=== PATIENT | female | born 1925 | race Caucasian/White ===

== ENCOUNTER 2016-03-04 14:26 | Inpatient (IN) | payer MEDICARE, MEDICAID ==
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
[2016-03-04 15:59] LABS: % EOSINOPHILS 3.8 % (0.0-5.0); % LYMPHOCYTES 20.7 % (20.0-50.0); % MONOCYTES 8.4 % (2.0-10.0); % NEUTROPHILS 67.1 % (40.0-80.0); HEMOGLOBIN 13.3 gm/dL (11.7-16.1); MEAN CELL VOLUME 92.8 fl (81-100); MEAN CORPUSCULAR HEMOGLOBIN 31.6 pg (27.0-31.0); MEAN PLATELET VOLUME 7.4 fl; NEUTROPHILE ABSOLUTE 5.9 Th/cmm (1.8-8.0); PLATELET COUNT 291 Th/cmm (150-400); RED CELL DISTRIBUTION WIDTH 13.1 % (11.5-20.0); WHITE BLOOD COUNT 8.7 Th/cmm (4.8-10.8)
[2016-03-04 16:14] LABS: ALB/GLOB RATIO 1.8 (1.0-1.8); ALKALINE PHOSPHATASE 81 U/L (34-104); ANION GAP 10.4 (7.0-16.0); BILIRUBIN,TOTAL 0.4 mg/dL (0.3-1.0); BUN - UREA NITROGEN 20 mg/dL (7-25); BUN/CREATININE RATIO 28.6; CALCIUM SERUM 9.6 mg/dL (8.6-10.3); CARBON DIOXIDE 22.7 mEq/L (21.0-31.0); CHLORIDE 111 mEq/L (98-107); CREATININE - SERUM 0.7 mg/dL (0.6-1.2); GLUCOSE 97 mg/dL (70-105); POTASSIUM SERUM 4.1 mEq/L (3.5-5.1); SGOT 22 U/L (13-39); SGPT/ALT 18 U/L (7-52); SODIUM SERUM 140 mEq/L (136-145)
[2016-03-04 19:40] VITALS: BP 145/71
[2016-03-04] MEDS ORDERED: Maalox 30 mL Cup PO PRN (19:52)
[2016-03-04] MEDS ORDERED: Magnesium Hydroxide (MOM) 30 mL UDC PO PRN (19:52)
[2016-03-04] MEDS ORDERED: Non-Formulary Item 1 EA (Melatonin [Melatonin] 9 MG) PO SCH (21:00)
[2016-03-04] MEDS: Dextromethorphan/Quinidine 20mg/10mg Cap PO SCH (21:02)
[2016-03-05] MEDS: Multivitamin w/ Minerals Tab PO SCH (08:34)
[2016-03-05] MEDS: Dextromethorphan/Quinidine 20mg/10mg Cap PO SCH ×2 (08:34→20:41)
[2016-03-05] MEDS ORDERED: Non-Formulary Item 1 EA (Cranberry [Cranberry] 425 MG) PO SCH (09:00)
[2016-03-05] MEDS: Diclofenac 75 mg Tab PO SCH ×2 (09:07→17:09)
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
--- NOTE | 2016-03-06 08:39 | Psychosocial Evaluation ---
JUSTIFICATION FOR HOSPITALIZATION: The patient was transferred from the nursing facility for agitation and aggression. CHIEF COMPLAINT: "I don't know why I am here." HISTORY OF PRESENT ILLNESS: An 89-year-old female transferred from _SNF___ for aggressive behaviors, agitation. Staff was unable to care for her. The patient does not know why she is in the hospital. She is not quite sure about the month or the year. She knows the state and the country she is in. PAST PSYCHIATRIC HISTORY: Dementia. FAMILY HISTORY: Noncontributory. SOCIAL HISTORY: The patient states she was born in [place]. She states she is a . She states she has children, but does not know how many or rather does not tell me how many, unclear. MEDICATIONS: Reviewed. MEDICAL HISTORY: Reviewed. MENTAL STATUS EXAMINATION: Appearance stated age. Fair eye contact. Speech pressured, rambling, difficult to redirect. Mood is "okay." Affect flat. Thought processes seemed confused. Thought content, no overt SI or HI. No overt evidence of psychosis. Concentration diminished. Insight and judgment diminished x 2. PROVISIONAL DIAGNOSES: Neurocognitive decline ____, rule out dementia with behavioral disturbances, also psychosis, not otherwise specified; mood, not otherwise specified. MEDICAL: Please see full and. ESTIMATED LENGTH OF STAY: 5-7 days. The patient's strength is good access to care and good family support. WEAKNESSES: Difficult to control symptoms. ASSESSMENT: The patient requiring inpatient hospitalization, agitated, aggressive, unable to be cared for at a lower level of care due to the severity of her symptoms. PLAN: We will titrate medications. The patient is requiring emergency medications today, Ativan x 1. TREATMENT PLAN: Includes group as well as milieu therapy. CONDITIONS FOR DISCHARGE: Improved mood, improved affect, cessation of any SI or HI, control of her Aggression. JOB# [id number] AMBER
[2016-03-06] MEDS: Diclofenac 75 mg Tab PO SCH ×2 (09:43→16:59)
[2016-03-06] MEDS: Multivitamin w/ Minerals Tab PO SCH (09:43)
[2016-03-06] MEDS: Dextromethorphan/Quinidine 20mg/10mg Cap PO SCH ×2 (09:46→21:02)
--- NOTE | 2016-03-06 19:14 | Progress Notes ---
SUBJECTIVE: The patient seen, chart reviewed, discussed with staff. The patient remains labile, screaming, anxious, still appearing disoriented, not quite sure why she is in the hospital. The patient still agitated. She was pretty aggressive yesterday and agitated and got an emergency medications Ativan p.r.n. Currently on Aricept and Namenda. The patient is sleeping fairly well, eating with prompting. She had been quite aggressive and agitated, ____ and they were not able to take care of her basic needs due to her behaviors. ASSESSMENT: The patient remains labile, agitated, screaming, requiring emergency medications within the past 24 hours. PLAN: We will initiate low dose Depakote, monitor closely for any undue side effects. Continue to monitor for behavioral changes and disturbances. [facility]# [id number]
--- NOTE | 2016-03-07 18:59 | Progress Notes ---
SUBJECTIVE: The patient is seen, chart reviewed, discussed with staff. The patient remains symptomatic, still aggressive and agitated. The patient is still with the yelling and screaming episodes, at times oppositional, refusing medications, requiring a lot of prompting, pressured speech, nonsensical at times. Sleeping fairly well, calm this morning. ASSESSMENT: The patient remains agitated, still with yelling and screaming episodes, still at times refusing care. The staff remains concerned due to her behaviors and she still requires emergency medications such as as-needed Ativan, which does help, but at times difficult to get her to actually take the medicine. PLAN: We will continue to monitor. Due to the persistence of the patient's symptoms, she is not safe for a lower level of care. [facility]# [id number]
[2016-03-07] MEDS: Dextromethorphan/Quinidine 20mg/10mg Cap PO SCH (20:59)
[2016-03-08] MEDS: Diclofenac 75 mg Tab PO SCH ×3 (08:11→17:23)
[2016-03-08] MEDS: Dextromethorphan/Quinidine 20mg/10mg Cap PO SCH ×3 (08:11→21:04)
[2016-03-08] MEDS: Multivitamin w/ Minerals Tab PO SCH ×2 (08:12→09:15)
--- NOTE | 2016-03-09 04:21 | Progress Notes ---
SUBJECTIVE: The patient seen, chart reviewed. Discussed with staff. The patient remains symptomatic, still with periods of agitation, still with yelling episodes, screaming episodes pressured at times. She is getting Ativan p.r.n., but it seems to be a little bit too high of a dose. She is quite lethargic after taking even 0.5 mg. Staff noting she is sleeping well, eating with prompting, still a lot of opposition, resistant to care at times. Currently on a dose of Nuedexta, p.r.n. Ativan. ASSESSMENT: The patient remains symptomatic, not safe for a lower level of care at this time, still with episodes, still impulsive, unpredictable, acting out episodes. PLAN: Continue to monitor. We will lower Ativan today to address oversedation. JOB# [id number]
[2016-03-09] MEDS: Dextromethorphan/Quinidine 20mg/10mg Cap PO SCH ×2 (16:33→20:34)
[2016-03-09] MEDS: Diclofenac 75 mg Tab PO SCH (16:33)
[2016-03-09] MEDS: Multivitamin w/ Minerals Tab PO SCH (16:34)
--- NOTE | 2016-03-10 00:58 | Progress Notes ---
SUBJECTIVE: The patient was seen, chart reviewed, and discussed with staff. The patient remains agitated, confused, rambling nonsensically, talking about the ___earth_ fixated on going to _her home country___, believe that a staff member was her mother, nonsensical, confused. Staff concerned. The patient is not really making any senses, needing a lot of prompting for ADLs, prompting for eating, withdrawn. ASSESSMENT: The patient remains symptomatic, agitated, confused, and still lashing out at times. PLAN: Continue to monitor. We will adjust medications today, increase Namenda. JOB# [id number] AMBER
[2016-03-10] MEDS: Dextromethorphan/Quinidine 20mg/10mg Cap PO SCH ×2 (08:12→21:00)
[2016-03-10] MEDS: Multivitamin w/ Minerals Tab PO SCH (08:13)
[2016-03-10] MEDS: Diclofenac 75 mg Tab PO SCH ×2 (08:16→16:10)
--- NOTE | 2016-03-11 04:25 | Progress Notes ---
SUBJECTIVE: The patient seen, chart reviewed, discussed with staff. The patient is still rambling, still nonsensical. Staff noting some improvement, calmer on exam. She is telling she has a lot of money, jumping from one topic to the next, talking about __myriad__ events, talking about her son, staff noting she is more redirectable, taking her medications, no overt side effects, eating though with prompting, ADLs with prompting. ASSESSMENT: The patient remains symptomatic, still with some episodes and outbursts. PLAN: Continue to monitor. The patient remains confused and disoriented. We will continue to titrate her medications. JOB# [id number] AMBER
[2016-03-11] MEDS: Multivitamin w/ Minerals Tab PO SCH (08:15)
[2016-03-11] MEDS: Dextromethorphan/Quinidine 20mg/10mg Cap PO SCH ×2 (08:15→20:30)
[2016-03-11] MEDS: Diclofenac 75 mg Tab PO SCH ×2 (08:16→16:08)
--- NOTE | 2016-03-12 03:20 | Progress Notes ---
SUBJECTIVE: The patient was seen, chart reviewed, and discussed with staff. The patient seems to be improved mildly, more redirectable, walking more, more engaged, calmer, still with some confusion, but seems to be making her needs met. She remains confused and impulsive and unpredictable, still not making any sense at times, still talking about the governments. I cannot understand her a lot of the times. Sleeping fairly well, eating well. Tolerant to medications. No overt side effects. ASSESSMENT: The patient with continued agitation episodes, still acting out, but calmer, some improvement noted, still impulsive, unpredictable, concerns for her safety and lashing out behaviors. PLAN: We will continue to monitor for now and titrate medications. JOB# [id number]
[2016-03-12] MEDS: Diclofenac 75 mg Tab PO SCH ×2 (08:07→16:27)
[2016-03-12] MEDS: Dextromethorphan/Quinidine 20mg/10mg Cap PO SCH ×2 (08:07→20:58)
[2016-03-12] MEDS: Multivitamin w/ Minerals Tab PO SCH (08:07)
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
[2016-03-13] MEDS: Dextromethorphan/Quinidine 20mg/10mg Cap PO SCH ×2 (08:18→21:05)
[2016-03-13] MEDS: Multivitamin w/ Minerals Tab PO SCH (08:18)
[2016-03-13] MEDS: Diclofenac 75 mg Tab PO SCH ×2 (08:20→17:46)
--- NOTE | 2016-03-14 01:32 | Progress Notes ---
PSYCHIATRIC PROGRESS NOTE Dr. Swain is covering for Dr. Glover. SUBJECTIVE: Chart was reviewed and the patient interviewed. Also discussed the patient's condition with the staff and reviewed records and labs. The patient speaks mainly Stat[place]. The patient is still confused. She is still pacing up and down ____, and she is still hyperverbal and she is talking in [place] language things that difficult to understand. The patient also is still suspicious and is still paranoid. She also has unsteady gait and has to be monitored closely. Otherwise, the patient is compliant with taking her medications. ASSESSMENT: The patient is still confused and considered to be gravely disabled. TREATMENT PLAN: We will continue monitoring her behavior and her condition closely. Also, continue adjusting psychotropic medications and will follow up. JOB# [id number]
[2016-03-14] MEDS: Multivitamin w/ Minerals Tab PO SCH (08:45)
[2016-03-14] MEDS: Diclofenac 75 mg Tab PO SCH ×2 (08:45→16:14)
[2016-03-14] MEDS: Dextromethorphan/Quinidine 20mg/10mg Cap PO SCH ×2 (08:45→21:19)
[2016-03-14] MEDS ORDERED: Diphenoxylate/Atropine 2.5mg Tab PO PRN (20:07)
--- NOTE | 2016-03-15 04:47 | Progress Notes ---
SUBJECTIVE: Chart reviewed and the patient interviewed. Also discussed the patient's condition with the staff and reviewed records and labs. The patient continued to be anxious and restless. The patient also is still hyperverbal and rambling in [place] language with words difficult to understand. The patient also is still restless and she is still intrusive to others and needs lots of redirections. She also is still confused. She is also resisting care when tried to redirect her. Otherwise, the patient continued to comply with medications with no side effect of medications. ASSESSMENT: The patient is still psychotic and aggressive. TREATMENT PLAN: Continue monitoring her behavior and her condition closely. Also, continue to work on her agitation and irritability and continue to follow up. JOB# [id number]
[2016-03-15] MEDS: Multivitamin w/ Minerals Tab PO SCH (09:35)
[2016-03-15] MEDS: Dextromethorphan/Quinidine 20mg/10mg Cap PO SCH ×2 (09:36→20:51)
[2016-03-15] MEDS: Diclofenac 75 mg Tab PO SCH ×2 (09:37→16:53)
[2016-03-15 12:10] LABS: URINE COLOR YELLOW
[2016-03-15 12:11] LABS: URINE BILIRUBIN NEGATIVE (NEGATIVE); URINE BLOOD MODERATE (NEGATIVE); URINE GLUCOSE (UA) NEGATIVE (NEGATIVE); URINE KETONE NEGATIVE (NEGATIVE); URINE PH 8.5; URINE PROTEIN NEGATIVE (NEGATIVE); URINE UROBILINOGEN 0.2 E.U./dL (0.2 - 1.0)
[2016-03-15 12:12] LABS: URINE BACTERIA 3+ /hpf (NONE SEEN); URINE EPITHELIAL CELLS FEW /lpf (FEW)
--- NOTE | 2016-03-15 23:54 | Progress Notes ---
SUBJECTIVE: The patient was seen, chart reviewed, and discussed with staff. The patient remains symptomatic, hyperverbal, anxious, highly restless, still intrusive, still requiring a lot of redirection, still confused at times, disoriented, and paranoia noted. Sleeping fairly well, eating well. It seems she is mildly calmer on exam. She does comply with her medications. No side effects noted and discussed with staff. ASSESSMENT: The patient remains still psychotic, still agitated at times, hyperverbal, restless, and difficult to redirect. PLAN: Continue to monitor. Continue to target agitation and restlessness. We will increase Ativan. JOB# [id number]
[2016-03-16] MEDS: Diclofenac 75 mg Tab PO SCH ×2 (08:22→17:02)
[2016-03-16] MEDS: Dextromethorphan/Quinidine 20mg/10mg Cap PO SCH ×2 (08:23→21:19)
[2016-03-16] MEDS: Multivitamin w/ Minerals Tab PO SCH (08:26)
[2016-03-17] MEDS: Multivitamin w/ Minerals Tab PO SCH (08:47)
[2016-03-17] MEDS: Diclofenac 75 mg Tab PO SCH ×2 (08:48→16:23)
[2016-03-17] MEDS: Dextromethorphan/Quinidine 20mg/10mg Cap PO SCH ×2 (08:48→20:48)
--- NOTE | 2016-03-17 10:09 | Progress Notes ---
SUBJECTIVE: The patient was seen, chart reviewed, and discussed with staff. The patient is still rambling, disoriented, she still feels the staff is still trying to harm her. Placement has been confirmed, but there are continued concerns about her behaviors, still with continued outbursts, still highly anxious, staff asking for increase in medications because she is difficult to control and her anger is difficult to contain. She has yelling episodes. ____ withdrawn, isolated, stays in the room most of the time. Eating with prompting. At one point, she starts to disrobe to the point I have to tell her to stop and walk away. Still inappropriate. ASSESSMENT: The patient remains disorganized, confused, disoriented, still with odd behaviors, making it clear that she is not safe for a lower level of care at this time although placement has been confirmed. PLAN: We will increase Ativan, monitor closely for any side effects. JOB# [id number]
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
[2016-03-18] MEDS: Multivitamin w/ Minerals Tab PO SCH (09:55)
[2016-03-18] MEDS: Diclofenac 75 mg Tab PO SCH (09:55)
[2016-03-18] MEDS: Dextromethorphan/Quinidine 20mg/10mg Cap PO SCH (09:55)
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
== END 2016-03-18 16:00 | DRG 884 ==
LOC: ER 14:26 → GERO 19:31
PROVIDERS: ADMIT Psychiatry & Neurology Psychiatry; ATTEND Psychiatry & Neurology Psychiatry
DX: F03.91 Unspecified dementia, unspecified severity, with behavioral disturbance (principal); I11.0 Hypertensive heart disease with heart failure; I50.9 Heart failure, unspecified; M10.9 Gout, unspecified; F41.9 Anxiety disorder, unspecified; M18.10 Unilateral primary osteoarthritis of first carpometacarpal joint, unspecified hand; M81.0 Age-related osteoporosis without current pathological fracture; M19.90 Unspecified osteoarthritis, unspecified site; F32.9 Major depressive disorder, single episode, unspecified; F48.8 Other specified nonpsychotic mental disorders; F29 Unspecified psychosis not due to a substance or known physiological condition; G47.00 Insomnia, unspecified
CPT/HCPCS: 36415-UA; 80053-TC; 81001-TC; 84443-TC; 85025-TC; 86592-TC; 90899; 93005; Z7610

== ENCOUNTER 2016-09-02 10:50 | Inpatient (IN) | payer MEDICARE, MEDICAID ==
[2016-09-02] MEDS ORDERED: Bacitracin pkt 1 gm Pkt TP ONE (11:28)
[2016-09-02] MEDS ORDERED: Bacitracin pkt 1 gm Pkt TP STA (11:30)
--- NOTE | 2016-09-02 11:36 | ED Physician Chart ---
Chief Complaint/HPI - Patient Information Date Seen:: 09/02/16 Time Seen:: 11:10 Chief Complaint:: forehead laceration History of Present Illness:: The patient was out walking with the aid of a walker at about 8:00 this morning she fell forward apparently striking her forehead on the walker. She also apparently struck her left shoulder when she fell. There was no loss of consciousness. Allergies:: Allergies Allergy/AdvReac Type Severity Reaction Status Date / Time No Known Allergies Allergy Verified 09/02/16 11:01 Vitals:: Vital Signs - 8 hr 09/02/16 10:50 Temp 99.3 F HR 83 RR 16 BP 155/71 O2 Sat % 98 Historian:: Patient Review:: Nurse's Note Reviewed, Transfer documents Reviewed Review of Systems - Review of Systems General/Constitutional: No fever, No chills Skin: Skin lesions Head: No headache Eyes: No loss of vision ENT: No earache, No sore throat Neck: No neck pain Cardio Vascular: No chest pain Pulmonary: No SOB GI: No nausea, No vomiting G/U: No dysuria Musculoskeletal: Bone or joint pain Endocrine: No polyuria, No polydipsia Psychiatric: Prior psych history Allergic/Immuno: No urticaria, No angioedema Neurological: No syncope, No focal symptoms Past Medical History - Past Medical History Past Medical History: HTN, Arthritis, Dementia, Other (pseudobulbar effect) Family History: Other (unavailable) Social History: Care Facility Surgical History: other (unavailable) Psychiatricy History: Schizophrenia, Dementia Medication: Reviewed Family Medical History - Family Member Mother History Unknown: Yes Ethnicity: Living Status: Physical Exam - Physical Examination General/Constitutional: Well-developed, well-nourished, Alert, No distress Other Head comments:: 2 cm oblique superior forehead laceration near midline about 2 cm below the hairline Eyes: Lids, conjuctiva normal Skin: No rash, No ecchymosis, Well hydrated, No lymphadenopathy Other Skin comments:: See under head ENMT: External ears, nose nl Neck: No nuchal rigidity Respiratory: Nl effort/Exclusion, Clear to Auscultation Cardio Vascular: RRR GI: No tenderness/rebounding/guarding : No CVA tenderness Other Extremities comments:: Tenderness humeral head left shoulder Neuro/Psych: No focal deficits Labs/Radiology/EKG Results - Radiology Results Results: Left shoulder: Oblique fracture proximal humerus; CT head showed atrophy only , no bleed. Assessment Location:: Forehead laceration: Skin cleansed with Betadine solution; 2% Xylocaine with epinephrine for local anesthesia; irrigated with normal saline; laceration closed with 5-0 chromic 5 interrupted sutures ED Septic Shock - . Is Septic Shock (SBP<90, OR Lactate>4 mmol\L) present?: No - <6hrs of presentation: Vital Signs: Vital Signs - 8 hr 09/02/16 10:50 Temp 99.3 F HR 83 RR 16 BP 155/71 O2 Sat % 98 Reassessment (Disposition) - Reassessment Reassessment Condition:: Improved - Diagnosis Diagnosis:: 2 cm forehead laceration; blunt head traulma; fracture proximal left humerus - Patient Disposition Admitted to:: Med/Surg Admitting Medical Physician:: Dr. Terrance Calvillo's CLINICAL ANALYST present Condition at Disposition:: Stable, Improved
--- NOTE | 2016-09-02 12:06 | History and Physical ---
History of Present Illness - HPI Chief Complaint: s/p fall HPI: THIS IS A 89 YEAR OLD FEMALE WHO IS A RESIDENT OF [facility] WHO IS BROUGHT TO THE ER FOR HEAD LACERATION DUE TO S/P FALL. ACCORDING TO NURSING STAFF AT [facility], AROUND 8 AM TODAY THIS MORNING PATIENT WAS WALKING WITH HER WALKER WITH THE MANAGER OF [employer]S AND PATIENT FELL FORWARD TOWARDS HER WALKER AND FELL ON HER LEFT SHOULDER. DENIES ANY WEAKNESS, CHEST PAIN. Vital Signs: Last Vital Signs Temp 99.3 F 09/02/16 10:50 Pulse 83 09/02/16 10:50 Resp 16 09/02/16 10:50 BP 155/71 09/02/16 10:50 Pulse Ox 98 09/02/16 10:50 Past Medical History Cardiovascular: Report: HTN Pulmonary: Denies: No Pertinent Hx SEWER AND INSPECTOR: Report: Dementia GI: Denies: No Pertinent Hx Psych: Denies: No Pertinent Hx Musculoskeletal: Report: Other (ARTHRITIS) Rheumatologic: Report: No pertinent Hx (ARTHRITIS), Other Infectious Disease: Report: No Pertinent Hx Renal/: Report: No Pertinent Hx Endocrine: Report: No Pertinent Hx Dermatology: Report: No Pertinent Hx - Past Surgical History Past Surgical History: No pertinent Hx Family Medical History - Family Member Mother History Unknown: Yes (NONCONTRIBUTORY) Ethnicity: Living Status: Social History Smoke: No Alcohol: None Drugs: None Lives: Residential Domestic Violence: Negative Health Maintenance Health Maintenance: Influenza Vaccine, Pneumococcal Vaccine - Medications Home Medications: Home Medication Medication Instructions Recorded Type Alendronate Sodium [Fosamax*] 70 mg PO Mo@0630 #0 tab 03/18/16 Rx Colchicine [Colcrys] 0.6 mg PO DAILY #0 tab 03/18/16 Rx Donepezil Hcl [Aricept] 10 mg PO HS #0 tab 03/18/16 Rx Multivitamin w/ Minerals 1 tab PO DAILY #0 tab 03/18/16 Rx [Theragran M] amLODIPine Besylate [Norvasc*] 10 mg PO DAILY #0 tab 03/18/16 Rx Acetaminophen [Tylenol] 650 mg PO Q6H PRN 09/02/[address] [Depakote DR] 250 mg PO DAILY 09/02/16 History Loperamide [Imodium] 2 tab PO Q4H PRN 09/02/16 History Memantine [Namenda] 10 mg PO BID 09/02/16 History Quetiapine Fumarate [Seroquel] 25 mg PO HS 09/02/16 History - Allergies Allergies/Adverse Reactions: Allergies Allergy/AdvReac Type Severity Reaction Status Date / Time No Known Allergies Allergy Verified 09/02/16 11:01 Review of Systems - Review of Systems Constitutional: Denies: Fever, Chills Eyes: Denies: Pain ENT: Denies: Ear Pain, Ear Discharge Respiratory: Denies: Cough, Dry Cardiovascular: Denies: Chest Pain Gastrointestinal: Denies: Nausea, Vomiting, Abdominal Pain Genitourinary: Denies: Dysuria Musculoskeletal: Report: Shoulder Pain Skin: Denies: Rash, Lesions Neurological: Denies: Weakness, Numbness Physical Exam - Physical Exam HEENT: Report: Ears Nose Throat Within Normal Limits Neck: Report: WNL Cardiovascular Systems: Report: +s1/s2 noted, Regular, Rate and Rhythm Respiratory: Report: Clear to Auscultation of lung campa Abdomen: Report: Non-tender to palpation Skin: Report: Color of skin is within normal limits, Warm, Dry Neuro/Psych: Report: A+Ox3 (WITH CONFUSION) - Assessment Assessment: 1. head laceration s/p fall 2. UTI 3. DEMENTIA 4. HTN - Plan Plan: PT EVAL APPLY TRIPLE ABX OINTMENT ON FOREHEAD BID FALL PRECAUTIONS AM LABS IVABX LEVAQUIN 500MG IV WILL MONITOR PATIENT CLOSELY
--- NOTE | 2016-09-02 12:10 | Diagnostic Imaging Report ---
Head CT without intravenous contrast Indication: Trauma Comparison: None Technique: Axial images were obtained from the vertex to the skull base without IV contrast. Coronal reconstructions were made. Total DLP: 563, [id number] FINDINGS: Images of the brain obtained without contrast demonstrate no acute hemorrhage. No mass lesions identified. Diffuse atrophy is noted. Moderate white matter disease is noted. The ventricles and basal cisterns are patent. No mass effect or midline shift. There is evidence of soft tissue injury of the forehead region with few pockets of gas. No evidence of a fracture. Mucosal thickening of the paranasal sinuses. IMPRESSION: Evidence of soft tissue injury of the forehead region with few pockets of gas noted. No evidence of an acute fracture No evidence of an acute intracranial hemorrhage. Diffuse atrophy. Diffuse supratentorial white matter disease which is nonspecific and may be due to chronic microvessel ischemia.. Atherosclerotic vascular disease.
--- NOTE | 2016-09-02 13:25 | Diagnostic Imaging Report ---
Left shoulder 2 views Indication: Trauma Comparison: none Findings: Exam is limited as patient was not able to tolerate the exam. There is a minimally displaced fracture of the proximal left humeral shaft. No dislocation. Mild degenerative changes are noted. Atherosclerosis is noted. Mild surrounding soft tissue swelling of the left humerus is noted. Impression: Minimally displaced fracture of the proximal humeral shaft which may extend to the humeral neck.
[2016-09-02] MEDS ORDERED: Maalox 30 mL Cup PO PRN (13:30)
[2016-09-02] MEDS ORDERED: guaiFENesin 200 MG/10 ML UDC PO PRN (13:30)
[2016-09-02 13:35] VITALS: BP 156/74
--- NOTE | 2016-09-02 14:02 | Admit Criteria Form ---
Admit Criteria Forms - Admit Criteria Diagnosis: MUSCULOSKELETAL DISEASE [facility] Clinical Indications for Admission to Inpatient Care (Place 'X' for any and all applicable criteria): Hospital admission is needed for appropriate care of the patient because of 1 or more of the following: [X]I. Fracture, dislocation, or other musculoskeletal injury requiring inpatient care(medical) as indicated by 1 or more of the following(4)(5)(6)(7) [ ]a) Vertebral fracture requiring observation for instability or neurologic compromise (8) [ ]b) Compartment syndrome (proven or cannot be ruled out during observation level of care) (9) [ ]c) Limb-threatening injury [ ]d) Major injury requiring inpatient stabilization such as traction initiation or external fixation before internal fixation or closure of complex or open fracture [X]e) Major injury requiring inpatient treatment after emergency or observation level care (as appropriate) [ ]f) Severe pain requiring acute inpatient management [ ]g) Injury with suspicion of abuse or neglect (eg., child, dependent elderly) [ ]II. Newly diagnosed or suspected bone, joint, or orthopedic device infection (e.g., osteomyelitis, septic arthritis) needing 1 or more of the following(1)(2)(3) [ ]a) IV antibiotics that cannot be initiated in other than inpatient setting (e.g., patient too unstable or home infusion not available) [ ]b) Device removal or replacement [ ]c) Bone or soft tissue debridement [ ]d) Joint drainage (drain placement or repetitive aspirations) [ ]III. Severe rheumatologic disease (e.g., systemic lupus erythematosus, rheumatoid arthritis) with complications or comorbidities (Also use Optimal Recovery Care Criteria or General Recovery Criteria as appropriate on the basis of predominant condition), including 1 or more of the following( 10)(11)(12)(13) [ ]a) Severe infection (e.g., SENIOR ADVOCATE infection, sepsis) (14) [ ]b) Respiratory complications, including 1 or more of the following : [ ]i) Pleural effusion with respiratory compromise [ ]ii) Pulmonary hypertension with congestive failure [ ]iii) Respiratory failure [ ]iv) Pulmonary hemorrhage (15) [ ]c) Hematologic disease, including 1 or more of the following: [ ]i) Coagulopathy with bleeding [ ]ii) Thrombosis with hypercoagulable state [ ]iii) Thrombotic thrombocytopenic purpura [ ]d) Cerebritis with seizures, psychosis, or other severe abnormalities [ ]e) Vertebral destruction with monitoring needed for cervical myelopathy& possible respiratory compromise [ ]f) Exacerbation that requires inpatient treatment (e.g., intravenous immunosuppression) (16) [ ]g) Acute renal failure [ ]h) Cerebritis with seizures, psychosis, Altered mental status, or other neurologic abnormalities [ ]i) Pericardial effusion with tamponade [ ]j) Vertebral destruction, with monitoring needed for cervical myelopathy and possible respiratory compromise [ ]IV. Severe vasculitis with complications or comorbidities (Also use Optimal Recovery Care Criteria General Recovery Criteria as appropriate on the basis of predominant condition), including 1 or more of the following(11)(12)(17)(18)(19)(20) [ ]a) Exacerbation that requires inpatient treatment (e.g., intravenous immunosuppression) (19)(21) [ ]b) Pulmonary hemorrhage (15) [ ]c) SENIOR ADVOCATE vasculitis with seizures, psychosis, Altered mental status that is severe or persistent, or other severe abnormalities (22) [ ]d) Cerebral infarction [ ]e) Gastrointestinal ischemia [ ]f) Gangrene or threatened amputation [ ]g) Renal failure (16) [ ]h) Other significant complications of vasculitis ( eg., tissue or organ ischemia, organ dysfunction ) [ ]V. Severe myopathy as indicated by 1 or more of the following (28)(29) [ ]a) New onset of airway compromise or inability to swallow [ ]b) Respiratory deterioration with observation needed for impending respiratory failure [ ]c) Exacerbation that requires inpatient treatment (e.g., intravenous immunosuppression) [ ]. Severe crystal gout (arthropathy) indicated by 1 or more of the following (23)(24) [ ]a) Severe pain requiring acute inpatient management [ ]b) Exacerbation that requires inpatient treatment (e.g., intravenous treatment) [ ]VII.Rhabdomyolysis and 1 or more of the following (25)(26)(27) [ ]a) Acute renal failure [ ]b) Need for intravenous hydration after emergency or observation level care (as appropriate) [ ]c) Inability to maintain oral hydration [ ]d) Change in mental status [ ]e) Electrolyte abnormality that remains after emergency or observation level care (as appropriate) [ ]VIII Post amputation complication, as indicated by ANY ONE of the following [ ]a) Infection [ ]b) Dehiscence [ ]c) Myodesis failure [ ]IX. Severe pain requiring acute inpatient management due to musculoskeletal condition [ ]X. Musculoskeletal Disease and ALL of the following: [ ]a) Symptom or finding for which emergency and observation care have failed or are not considered appropriate (Use General Criteria: Observation Care as appropriate) [ ]b) Presence of ANY ONE of the following [ ]i) A General Admission Criteria [ ]ii) A Pediatric General Admission Criteria The original [facility] content created by [facility] has been revised. The portions of the content which have been revised are identified through the use of italic text or in bold, and [facility] has neither reviewed nor approved the modified material. All other unmodified content is copyright [facility]. Please see references footnoted in the original [facility] edition 2016
[2016-09-02] MEDS: Levofloxacin 500mg/100mL 500 MG/100 ML BAG IV SCH (14:37)
[2016-09-02] MEDS: Hydrocodone/APAP 10 mg/325 mg Tab PO PRN (14:37)
[2016-09-02] MEDS: D5-0.45NS 1,000 ML IV SCH (14:39)
[2016-09-02] MEDS: Albuterol Nebulizer 2.5mg/3mL IH SCH ×2 (15:14→19:10)
[2016-09-02] MEDS: Ipratropium Neb 0.5 mg/2.5 mL UD IH SCH ×2 (15:14→19:10)
[2016-09-02 15:20] LABS: HEMATOCRIT 36.8 % (35.0-45.0); HEMOGLOBIN 12.5 gm/dL (11.7-16.1); MEAN CELL VOLUME 89.9 fl (81-100); MEAN CORPUSCULAR HEMOGLOBIN 30.5 pg (27.0-31.0); MEAN CORPUSCULAR HGB CONC 33.9 pg (28.0-36.0); MEAN PLATELET VOLUME 7.2 fl; PLATELET COUNT 252 Th/cmm (150-400); RED BLOOD COUNT 4.09 Mil/cmm (3.80-5.20); RED CELL DISTRIBUTION WIDTH 15.2 % (11.5-20.0)
[2016-09-02 15:25] LABS: WHITE BLOOD COUNT 14.6 Th/cmm (4.8-10.8)
[2016-09-02 15:32] LABS: INR 0.96 (0.5-1.4)
[2016-09-02 15:33] LABS: ALB/GLOB RATIO 1.8 (1.0-1.8); ALKALINE PHOSPHATASE 41 U/L (34-104); ANION GAP 6.9 (7.0-16.0); BILIRUBIN,TOTAL 0.3 mg/dL (0.3-1.0); BUN - UREA NITROGEN 22 mg/dL (7-25); BUN/CREATININE RATIO 36.7; CALCIUM SERUM 8.7 mg/dL (8.6-10.3); CARBON DIOXIDE 23.9 mEq/L (21.0-31.0); CHLORIDE 108 mEq/L (98-107); CREATININE - SERUM 0.6 mg/dL (0.6-1.2); GLUCOSE 144 mg/dL (70-105); MAGNESIUM 2.1 mg/dL (1.9-2.7); POTASSIUM SERUM 3.8 mEq/L (3.5-5.1); SGOT 15 U/L (13-39); SGPT/ALT 12 U/L (7-52); SODIUM SERUM 135 mEq/L (136-145)
[2016-09-02 15:34] LABS: BAND NEUTROPHILE 2 % (0-10); NEUTROPHILS 86 % (40-80); PLATELET ESTIMATE ADEQUATE (NORMAL); TOTAL CELLS COUNTED 100
[2016-09-02 16:08] LABS: TSH 0.51 uIU/ml (0.34-5.60)
[2016-09-02] MEDS: Morphine Sulfate 2 mg/mL 1mL Syr IVP PRN ×2 (16:21→22:36)
[2016-09-02] MEDS: Triple Antibiotic 0.94 gm Pkt TP SCH (17:17)
[2016-09-03 05:48] LABS: % BASOPHILS 0.3 % (0.0-2.0); % EOSINOPHILS 0.6 % (0.0-5.0); % LYMPHOCYTES 18.5 % (20.0-50.0); % NEUTROPHILS 67.6 % (40.0-80.0); HEMATOCRIT 33.6 % (35.0-45.0); HEMOGLOBIN 11.4 gm/dL (11.7-16.1); MEAN CELL VOLUME 91.1 fl (81-100); MEAN CORPUSCULAR HEMOGLOBIN 30.7 pg (27.0-31.0); MEAN CORPUSCULAR HGB CONC 33.8 pg (28.0-36.0); MEAN PLATELET VOLUME 7.3 fl; NEUTROPHILE ABSOLUTE 6.1 Th/cmm (1.8-8.0); PLATELET COUNT 214 Th/cmm (150-400); RED BLOOD COUNT 3.69 Mil/cmm (3.80-5.20)
[2016-09-03 05:58] LABS: WHITE BLOOD COUNT 9.1 Th/cmm (4.8-10.8)
[2016-09-03 06:12] LABS: ANION GAP 5.8 (7.0-16.0); BUN - UREA NITROGEN 16 mg/dL (7-25); BUN/CREATININE RATIO 26.7; CALCIUM SERUM 8.5 mg/dL (8.6-10.3); CARBON DIOXIDE 25.9 mEq/L (21.0-31.0); CHLORIDE 106 mEq/L (98-107); CREATININE - SERUM 0.6 mg/dL (0.6-1.2); GLUCOSE 122 mg/dL (70-105); POTASSIUM SERUM 3.7 mEq/L (3.5-5.1); SODIUM SERUM 134 mEq/L (136-145)
[2016-09-03] MEDS: D5-0.45NS 1,000 ML IV SCH (07:10)
[2016-09-03] MEDS: Ipratropium Neb 0.5 mg/2.5 mL UD IH SCH ×4 (08:13→19:20)
[2016-09-03] MEDS: Albuterol Nebulizer 2.5mg/3mL IH SCH ×4 (08:13→19:19)
[2016-09-03] MEDS: Hydrocodone/APAP 10 mg/325 mg Tab PO PRN ×2 (09:18→16:28)
[2016-09-03] MEDS: Multivitamin w/ Minerals Tab PO SCH (09:20)
[2016-09-03] MEDS: Triple Antibiotic 0.94 gm Pkt TP SCH ×2 (09:25→18:43)
--- NOTE | 2016-09-03 12:39 | Internal Medicine Prog Note ---
Internal Medicine Subjective - Subjective Service Date: 09/03/16 Patient is:: awake, verbal Per staff patient has:: no adverse event Internal Medicine Objective - Results Result Diagrams: 09/03/16 05:24 09/03/16 05:24 Recent Labs: Laboratory Last Values WBC 9.1 Th/cmm (4.8-10.8) D 09/03/16 05:24 RBC 3.69 Mil/cmm (3.80-5.20) L 09/03/16 05:24 Hgb 11.4 gm/dL (11.7-16.1) L 09/03/16 05:24 Hct 33.6 % (35.0-45.0) L 09/03/16 05:24 MCV 91.1 fl (81-100) 09/03/16 05:24 MCH 30.7 pg (27.0-31.0) 09/03/16 05:24 MCHC Differential 33.8 pg (28.0-36.0) 09/03/16 05:24 RDW 15.0 % (11.5-20.0) 09/03/16 05:24 Plt Count 214 Th/cmm (150-400) 09/03/16 05:24 MPV 7.3 fl 09/03/16 05:24 Neutrophils % 67.6 % (40.0-80.0) 09/03/16 05:24 Band Neutrophils % 2 % (0-10) 09/02/16 15:08 Lymphocytes % 18.5 % (20.0-50.0) L 09/03/16 05:24 Monocytes % 13.0 % (2.0-10.0) H 09/03/16 05:24 Eosinophils % 0.6 % (0.0-5.0) 09/03/16 05:24 Basophils % 0.3 % (0.0-2.0) 09/03/16 05:24 Neutrophils (Manual) 86 % (40-80) H 09/02/16 15:08 Lymphocytes 10 % (20-50) L 09/02/16 15:08 Monocytes 2 % (2-10) 09/02/16 15:08 Platelet Estimate ADEQUATE (NORMAL) 09/02/16 15:08 PT 10.0 SECONDS (9.5-11.5) 09/02/16 15:08 INR 0.96 (0.5-1.4) 09/02/16 15:08 PTT (Actin FS) 22.7 SECONDS (26.0-38.0) L 09/02/16 15:08 Sodium 134 mEq/L (136-145) L 09/03/16 05:24 Potassium 3.7 mEq/L (3.5-5.1) 09/03/16 05:24 Chloride 106 mEq/L (98-107) 09/03/16 05:24 Carbon Dioxide 25.9 mEq/L (21.0-31.0) 09/03/16 05:24 Anion Gap 5.8 (7.0-16.0) L 09/03/16 05:24 BUN 16 mg/dL (7-25) 09/03/16 05:24 Creatinine 0.6 mg/dL (0.6-1.2) 09/03/16 05:24 Est GFR ( Amer) TNP 09/03/16 05:24 Est GFR (Non-Af Amer) TNP 09/03/16 05:24 BUN/Creatinine Ratio 26.7 09/03/16 05:24 Glucose 122 mg/dL (70-105) H 09/03/16 05:24 Calcium 8.5 mg/dL (8.6-10.3) L 09/03/16 05:24 Magnesium 2.1 mg/dL (1.9-2.7) 09/02/16 15:08 Total Bilirubin 0.3 mg/dL (0.3-1.0) 09/02/16 15:08 AST 15 U/L (13-39) 09/02/16 15:08 ALT 12 U/L (7-52) 09/02/16 15:08 Alkaline Phosphatase 41 U/L (34-104) 09/02/16 15:08 Ammonia 49 umol/L (16-53) 09/02/16 15:08 B-Natriuretic Peptide 169.0 pg/mL (5.0-100.0) H 09/02/16 15:08 Total Protein 6.1 gm/dL (6.0-8.3) 09/02/16 15:08 Albumin 3.9 gm/dL (3.7-5.3) 09/02/16 15:08 Globulin 2.2 gm/dL 09/02/16 15:08 Albumin/Globulin Ratio 1.8 (1.0-1.8) 09/02/16 15:08 TSH 0.51 uIU/ml (0.34-5.60) 09/02/16 15:08 - Physical Exam Vitals and I&O: Vital Signs Temp 99.5 F 09/03/16 08:00 Pulse 74 09/03/16 09:20 Resp 18 09/03/16 08:14 BP 144/59 09/03/16 09:20 Pulse Ox 94 09/03/16 08:14 Intake & Output 09/02/16 09/03/16 09/03/16 18:59 06:59 18:59 Intake Total 100 1231 Balance 100 1231 Weight (lbs) 116 lb 116 lb Intake: Intake, IV Amount 100 991 D5-0.45NS 1,000 ml @ 60 991 mls/hr IV .[id number] [facility] Rx #:[id number] Levofloxacin 500mg/100mL 100 500 mg In 100 ml @ 100 mls/hr IV Q24HR [facility] Rx#: [id number] Oral 240 Other: # Voids 3 # Bowel Movements 0 Stool Characteristics Soft Formed Active Medications: Current Medications Acetaminophen (Tylenol) 650 mg PO Q4HR PRN PRN Reason: Pain Or Fever above 101 Stop: 11/01/16 13:29 Acetaminophen/Hydrocodone Bitart ([place] 10 Mg/325 Mg) 1 tab PO Q6H PRN PRN Reason: Severe Pain Stop: 11/01/16 13:39 Last Admin: 09/03/16 09:18 Dose: 1 tab Al Hydrox/Mg Hydrox/Simethicone (Maalox) 30 ml PO Q6HR PRN PRN Reason: Dyspepsia Stop: 11/01/16 13:29 Albuterol Sulfate (Albuterol 2.5mg/3ml Neb Ud) 2.5 mg IH QID [facility] Stop: 11/01/16 13:29 Last Admin: 09/03/16 08:13 Dose: Not Given Alendronate Sodium (Fosamax) 70 mg PO Mo@0630 [facility] Stop: 11/05/16 06:29 Amlodipine Besylate (Norvasc) 10 mg PO DAILY [facility] Stop: 11/02/16 08:59 Last Admin: 09/03/16 09:20 Dose: 10 mg Clonidine HCl (Catapres) 0.1 mg PO Q6HR PRN PRN Reason: SBP GREATER THAN 160 Stop: 11/01/16 13:29 Divalproex Sodium (Depakote Dr) 250 mg PO DAILY TABITHA PRN Reason: Protocol Stop: 11/02/16 08:59 Last Admin: 09/03/16 09:20 Dose: 250 mg Docusate Sodium (Colace) 100 mg PO DAILY [facility] Stop: 11/02/16 08:59 Last Admin: 09/03/16 09:20 Dose: 100 mg Donepezil HCl (Aricept) 10 mg PO HS [facility] Stop: 11/01/16 20:59 Last Admin: 09/02/16 22:08 Dose: 10 mg Guaifenesin (Robitussin) 100 mg PO Q4H PRN PRN Reason: Cough or Congestion Stop: 11/01/16 13:29 Dextrose/Sodium Chloride (D5-0.45ns) 1,000 mls @ 60 mls/hr IV .[id number] [facility] Stop: 11/01/16 13:29 Last Admin: 09/03/16 07:10 Dose: 60 mls/hr Levofloxacin (Levaquin Pb) 500 mg in 100 mls @ 100 mls/hr IV Q24HR [facility] Stop: 11/01/16 13:29 Last Infusion: 09/02/16 16:23 Dose: Infused Ipratropium [place] (Atrovent Neb 0.5mg/2.5ml) 0.5 mg IH QID [facility] Stop: 11/01/16 13:29 Last Admin: 09/03/16 08:13 Dose: Not Given Loperamide HCl (Imodium) 4 mg PO Q4H PRN PRN Reason: Diarrhea Stop: 11/01/16 13:29 Memantine (Namenda) 10 mg PO BID [facility] Stop: 11/01/16 16:59 Last Admin: 09/03/16 09:20 Dose: 10 mg Morphine Sulfate (Morphine) 2 mg IVP Q4H PRN PRN Reason: Pain (Severe) Stop: 11/01/16 14:51 Last Admin: 09/02/16 22:36 Dose: 2 mg Neomycin/Polymyxin/Bacitracin (Triple Antibiotic Pkt) 1 pkt TP BID [facility] Stop: 11/01/16 16:59 Last Admin: 09/03/16 09:25 Dose: 1 pkt Ondansetron HCl (Zofran) 4 mg IV Q8H PRN PRN Reason: Nausea / Vomiting Stop: 11/01/16 13:29 Quetiapine Fumarate (Seroquel) 25 mg PO HS TABITHA PRN Reason: Protocol Stop: 11/01/16 20:59 Last Admin: 09/02/16 22:08 Dose: 25 mg General: weak, alert, NAD HEENT: NC/AT, PERRLA Neck: Supple, No JVD Cardiovascular: RRR, Normal S1, Normal S2, without murmur Abdomen: soft, non-tender, non-distended, positive bowel sound Neurological: no change - Procedures Procedures: Procedures Procedure Code Date REPAIR FACE, PERCUTANEOUS APPROACH [id number] 09/02/16 RPR F/E/E/N/L/M 2.5 CM/< 70467 09/02/16 Internal Medicine Assmt/Plan - Assessment Assessment: 1. head laceration s/p fall 2. UTI 3. DEMENTIA 4. HTN 5. displaced fx of the left proximal humeral shaft - Plan Plan: ortho consult AM LABS IVABX LEVAQUIN 500MG IV WILL MONITOR PATIENT CLOSELY
[2016-09-03] MEDS: Levofloxacin 500mg/100mL 500 MG/100 ML BAG IV SCH (16:30)
[2016-09-04] MEDS: D5-0.45NS 1,000 ML IV SCH ×2 (01:20→22:18)
[2016-09-04] MEDS: Morphine Sulfate 2 mg/mL 1mL Syr IVP PRN ×2 (05:12→20:27)
[2016-09-04 06:08] LABS: % BASOPHILS 0.3 % (0.0-2.0); % EOSINOPHILS 1.8 % (0.0-5.0); % LYMPHOCYTES 18.3 % (20.0-50.0); % MONOCYTES 11.9 % (2.0-10.0); % NEUTROPHILS 67.7 % (40.0-80.0); HEMATOCRIT 33.8 % (35.0-45.0); HEMOGLOBIN 11.6 gm/dL (11.7-16.1); MEAN CELL VOLUME 90.5 fl (81-100); MEAN CORPUSCULAR HEMOGLOBIN 30.9 pg (27.0-31.0); MEAN CORPUSCULAR HGB CONC 34.1 pg (28.0-36.0); MEAN PLATELET VOLUME 7.8 fl; NEUTROPHILE ABSOLUTE 6.2 Th/cmm (1.8-8.0); PLATELET COUNT 214 Th/cmm (150-400); RED BLOOD COUNT 3.74 Mil/cmm (3.80-5.20); RED CELL DISTRIBUTION WIDTH 15.3 % (11.5-20.0); WHITE BLOOD COUNT 9.2 Th/cmm (4.8-10.8)
[2016-09-04 06:23] LABS: ANION GAP 5.8 (7.0-16.0); BUN - UREA NITROGEN 13 mg/dL (7-25); BUN/CREATININE RATIO 21.7; CALCIUM SERUM 8.3 mg/dL (8.6-10.3); CARBON DIOXIDE 27.7 mEq/L (21.0-31.0); CHLORIDE 106 mEq/L (98-107); CREATININE - SERUM 0.6 mg/dL (0.6-1.2); GLUCOSE 101 mg/dL (70-105); POTASSIUM SERUM 3.5 mEq/L (3.5-5.1); SODIUM SERUM 136 mEq/L (136-145)
[2016-09-04] MEDS: Albuterol Nebulizer 2.5mg/3mL IH SCH ×4 (07:20→18:26)
[2016-09-04] MEDS: Ipratropium Neb 0.5 mg/2.5 mL UD IH SCH ×4 (07:20→18:27)
[2016-09-04] MEDS: Multivitamin w/ Minerals Tab PO SCH (10:02)
[2016-09-04] MEDS: Triple Antibiotic 0.94 gm Pkt TP SCH ×2 (10:02→17:15)
--- NOTE | 2016-09-04 13:57 | Internal Medicine Prog Note ---
Internal Medicine Subjective - Subjective Patient seen and examined:: with staff, chart reviewed Patient is:: awake, verbal, interactive, arousable, in bed, agitated, confused Patient Complaints of:: unable to sleep Per staff patient has:: no adverse event, agitated, noncompliant, confused, tolerating meds Internal Medicine Objective - Results Result Diagrams: 09/04/16 05:33 09/04/16 05:33 Recent Labs: Laboratory Last Values WBC 9.2 Th/cmm (4.8-10.8) 09/04/16 05:33 RBC 3.74 Mil/cmm (3.80-5.20) L 09/04/16 05:33 Hgb 11.6 gm/dL (11.7-16.1) L 09/04/16 05:33 Hct 33.8 % (35.0-45.0) L 09/04/16 05:33 MCV 90.5 fl (81-100) 09/04/16 05:33 MCH 30.9 pg (27.0-31.0) 09/04/16 05:33 MCHC Differential 34.1 pg (28.0-36.0) 09/04/16 05:33 RDW 15.3 % (11.5-20.0) 09/04/16 05:33 Plt Count 214 Th/cmm (150-400) 09/04/16 05:33 MPV 7.8 fl 09/04/16 05:33 Neutrophils % 67.7 % (40.0-80.0) 09/04/16 05:33 Band Neutrophils % 2 % (0-10) 09/02/16 15:08 Lymphocytes % 18.3 % (20.0-50.0) L 09/04/16 05:33 Monocytes % 11.9 % (2.0-10.0) H 09/04/16 05:33 Eosinophils % 1.8 % (0.0-5.0) 09/04/16 05:33 Basophils % 0.3 % (0.0-2.0) 09/04/16 05:33 Neutrophils (Manual) 86 % (40-80) H 09/02/16 15:08 Lymphocytes 10 % (20-50) L 09/02/16 15:08 Monocytes 2 % (2-10) 09/02/16 15:08 Platelet Estimate ADEQUATE (NORMAL) 09/02/16 15:08 PT 10.0 SECONDS (9.5-11.5) 09/02/16 15:08 INR 0.96 (0.5-1.4) 09/02/16 15:08 PTT (Actin FS) 22.7 SECONDS (26.0-38.0) L 09/02/16 15:08 Sodium 136 mEq/L (136-145) 09/04/16 05:33 Potassium 3.5 mEq/L (3.5-5.1) 09/04/16 05:33 Chloride 106 mEq/L (98-107) 09/04/16 05:33 Carbon Dioxide 27.7 mEq/L (21.0-31.0) 09/04/16 05:33 Anion Gap 5.8 (7.0-16.0) L 09/04/16 05:33 BUN 13 mg/dL (7-25) 09/04/16 05:33 Creatinine 0.6 mg/dL (0.6-1.2) 09/04/16 05:33 Est GFR ( Amer) TNP 09/04/16 05:33 Est GFR (Non-Af Amer) TNP 09/04/16 05:33 BUN/Creatinine Ratio 21.7 09/04/16 05:33 Glucose 101 mg/dL (70-105) 09/04/16 05:33 Calcium 8.3 mg/dL (8.6-10.3) L 09/04/16 05:33 Magnesium 2.1 mg/dL (1.9-2.7) 09/02/16 15:08 Total Bilirubin 0.3 mg/dL (0.3-1.0) 09/02/16 15:08 AST 15 U/L (13-39) 09/02/16 15:08 ALT 12 U/L (7-52) 09/02/16 15:08 Alkaline Phosphatase 41 U/L (34-104) 09/02/16 15:08 Ammonia 43 umol/L (16-53) 09/04/16 05:33 B-Natriuretic Peptide 169.0 pg/mL (5.0-100.0) H 09/02/16 15:08 Total Protein 6.1 gm/dL (6.0-8.3) 09/02/16 15:08 Albumin 3.9 gm/dL (3.7-5.3) 09/02/16 15:08 Globulin 2.2 gm/dL 09/02/16 15:08 Albumin/Globulin Ratio 1.8 (1.0-1.8) 09/02/16 15:08 TSH 0.51 uIU/ml (0.34-5.60) 09/02/16 15:08 - Physical Exam Vitals and I&O: Vital Signs Temp 97.3 F 09/04/16 11:31 Pulse 91 09/04/16 11:31 Resp 18 09/04/16 11:31 BP 141/75 09/04/16 11:31 Pulse Ox 96 09/04/16 11:31 Intake & Output 09/03/16 09/04/16 09/04/16 18:59 06:59 18:59 Intake Total 1231 1240 200 Output Total 0 Balance 1231 1240 200 Weight (lbs) 52.617 kg 52.617 kg 55.066 kg Intake: Intake, IV Amount 991 1000 D5-0.45NS 1,000 ml @ 60 991 1000 mls/hr IV .[id number] [facility] Rx #:[id number] Oral 240 240 200 Output: Stool 0 Other: # Voids 2 Active Medications: Current Medications Acetaminophen (Tylenol) 650 mg PO Q4HR PRN PRN Reason: Pain Or Fever above 101 Stop: 11/01/16 13:29 Acetaminophen/Hydrocodone Bitart ([place] 10 Mg/325 Mg) 1 tab PO Q6H PRN PRN Reason: Severe Pain Stop: 11/01/16 13:39 Last Admin: 09/03/16 16:28 Dose: 1 tab Al Hydrox/Mg Hydrox/Simethicone (Maalox) 30 ml PO Q6HR PRN PRN Reason: Dyspepsia Stop: 11/01/16 13:29 Albuterol Sulfate (Albuterol 2.5mg/3ml Neb Ud) 2.5 mg IH QID [facility] Stop: 11/01/16 13:29 Last Admin: 09/04/16 11:09 Dose: 2.5 mg Alendronate Sodium (Fosamax) 70 mg PO Mo@0630 [facility] Stop: 11/05/16 06:29 Amlodipine Besylate (Norvasc) 10 mg PO DAILY [facility] Stop: 11/02/16 08:59 Last Admin: 09/04/16 10:02 Dose: 10 mg Clonidine HCl (Catapres) 0.1 mg PO Q6HR PRN PRN Reason: SBP GREATER THAN 160 Stop: 11/01/16 13:29 Divalproex Sodium (Depakote Dr) 250 mg PO DAILY [facility] PRN Reason: Protocol Stop: 11/02/16 08:59 Last Admin: 09/04/16 10:02 Dose: 250 mg Docusate Sodium (Colace) 100 mg PO DAILY [facility] Stop: 11/02/16 08:59 Last Admin: 09/04/16 10:02 Dose: 100 mg Donepezil HCl (Aricept) 10 mg PO HS [facility] Stop: 11/01/16 20:59 Last Admin: 09/03/16 23:08 Dose: 10 mg Guaifenesin (Robitussin) 100 mg PO Q4H PRN PRN Reason: Cough or Congestion Stop: 11/01/16 13:29 Dextrose/Sodium Chloride (D5-0.45ns) 1,000 mls @ 60 mls/hr IV .[id number] [facility] Stop: 11/01/16 13:29 Last Admin: 09/04/16 01:20 Dose: 60 mls/hr Levofloxacin (Levaquin Pb) 500 mg in 100 mls @ 100 mls/hr IV Q24HR [facility] Stop: 11/01/16 13:29 Last Admin: 09/03/16 16:30 Dose: 100 mls/hr Ipratropium [place] (Atrovent Neb 0.5mg/2.5ml) 0.5 mg IH QID [facility] Stop: 11/01/16 13:29 Last Admin: 09/04/16 11:09 Dose: 0.5 mg Loperamide HCl (Imodium) 4 mg PO Q4H PRN PRN Reason: Diarrhea Stop: 11/01/16 13:29 Memantine (Namenda) 10 mg PO BID [facility] Stop: 11/01/16 16:59 Last Admin: 09/04/16 10:01 Dose: 10 mg Morphine Sulfate (Morphine) 2 mg IVP Q4H PRN PRN Reason: Pain (Severe) Stop: 11/01/16 14:51 Last Admin: 09/04/16 05:12 Dose: 2 mg Neomycin/Polymyxin/Bacitracin (Triple Antibiotic Pkt) 1 pkt TP BID [facility] Stop: 11/01/16 16:59 Last Admin: 09/04/16 10:02 Dose: 1 pkt Ondansetron HCl (Zofran) 4 mg IV Q8H PRN PRN Reason: Nausea / Vomiting Stop: 11/01/16 13:29 Quetiapine Fumarate (Seroquel) 25 mg PO HS [facility] PRN Reason: Protocol Stop: 11/01/16 20:59 Last Admin: 09/03/16 23:08 Dose: 25 mg General: weak, disheveled, appears older, NAD HEENT: NC/AT, PERRLA Neck: Supple, No JVD, No LAD Cardiovascular: RRR, Normal S1, Normal S2, with murmur Abdomen: soft, non-tender, globular, non-distended, positive bowel sound Extremities: excoriation, contracture Neurological: no change - Procedures Procedures: Procedures Procedure Code Date REPAIR FACE, PERCUTANEOUS APPROACH [id number] 09/02/16 RPR F/E/E/N/L/M 2.5 CM/< 88044 09/02/16 Internal Medicine Assmt/Plan - Assessment Assessment: 1. head laceration s/p fall 2. UTI 3. DEMENTIA 4. HTN 5. displaced fx of the left proximal humeral shaft - Plan Plan: ortho consult AM LABS IVABX LEVAQUIN 500MG IV WILL MONITOR PATIENT CLOSELY - Plan Plan: see plan
[2016-09-04] MEDS: Levofloxacin 500mg/100mL 500 MG/100 ML BAG IV SCH (14:08)
[2016-09-05] MEDS: Morphine Sulfate 2 mg/mL 1mL Syr IVP PRN (00:44)
[2016-09-05] MEDS: Albuterol Nebulizer 2.5mg/3mL IH SCH ×4 (07:10→19:40)
[2016-09-05] MEDS: Ipratropium Neb 0.5 mg/2.5 mL UD IH SCH ×4 (07:10→19:41)
[2016-09-05] MEDS: Triple Antibiotic 0.94 gm Pkt TP SCH ×2 (09:22→16:10)
[2016-09-05] MEDS: Multivitamin w/ Minerals Tab PO SCH (09:30)
[2016-09-05] MEDS: Levofloxacin 500mg/100mL 500 MG/100 ML BAG IV SCH (13:51)
[2016-09-05] MEDS: D5-0.45NS 1,000 ML IV SCH (13:53)
--- NOTE | 2016-09-05 16:41 | Internal Medicine Prog Note ---
Internal Medicine Subjective - Subjective Patient seen and examined:: with staff, chart reviewed Patient is:: awake, verbal, interactive, arousable, in bed, agitated, confused Patient Complaints of:: unable to sleep Per staff patient has:: no adverse event, agitated, noncompliant, confused, tolerating meds Internal Medicine Objective - Results Result Diagrams: 09/04/16 05:33 09/04/16 05:33 Recent Labs: Laboratory Last Values WBC 9.2 Th/cmm (4.8-10.8) 09/04/16 05:33 RBC 3.74 Mil/cmm (3.80-5.20) L 09/04/16 05:33 Hgb 11.6 gm/dL (11.7-16.1) L 09/04/16 05:33 Hct 33.8 % (35.0-45.0) L 09/04/16 05:33 MCV 90.5 fl (81-100) 09/04/16 05:33 MCH 30.9 pg (27.0-31.0) 09/04/16 05:33 MCHC Differential 34.1 pg (28.0-36.0) 09/04/16 05:33 RDW 15.3 % (11.5-20.0) 09/04/16 05:33 Plt Count 214 Th/cmm (150-400) 09/04/16 05:33 MPV 7.8 fl 09/04/16 05:33 Neutrophils % 67.7 % (40.0-80.0) 09/04/16 05:33 Band Neutrophils % 2 % (0-10) 09/02/16 15:08 Lymphocytes % 18.3 % (20.0-50.0) L 09/04/16 05:33 Monocytes % 11.9 % (2.0-10.0) H 09/04/16 05:33 Eosinophils % 1.8 % (0.0-5.0) 09/04/16 05:33 Basophils % 0.3 % (0.0-2.0) 09/04/16 05:33 Neutrophils (Manual) 86 % (40-80) H 09/02/16 15:08 Lymphocytes 10 % (20-50) L 09/02/16 15:08 Monocytes 2 % (2-10) 09/02/16 15:08 Platelet Estimate ADEQUATE (NORMAL) 09/02/16 15:08 PT 10.0 SECONDS (9.5-11.5) 09/02/16 15:08 INR 0.96 (0.5-1.4) 09/02/16 15:08 PTT (Actin FS) 22.7 SECONDS (26.0-38.0) L 09/02/16 15:08 Sodium 136 mEq/L (136-145) 09/04/16 05:33 Potassium 3.5 mEq/L (3.5-5.1) 09/04/16 05:33 Chloride 106 mEq/L (98-107) 09/04/16 05:33 Carbon Dioxide 27.7 mEq/L (21.0-31.0) 09/04/16 05:33 Anion Gap 5.8 (7.0-16.0) L 09/04/16 05:33 BUN 13 mg/dL (7-25) 09/04/16 05:33 Creatinine 0.6 mg/dL (0.6-1.2) 09/04/16 05:33 Est GFR ( Amer) TNP 09/04/16 05:33 Est GFR (Non-Af Amer) TNP 09/04/16 05:33 BUN/Creatinine Ratio 21.7 09/04/16 05:33 Glucose 101 mg/dL (70-105) 09/04/16 05:33 Calcium 8.3 mg/dL (8.6-10.3) L 09/04/16 05:33 Magnesium 2.1 mg/dL (1.9-2.7) 09/02/16 15:08 Total Bilirubin 0.3 mg/dL (0.3-1.0) 09/02/16 15:08 AST 15 U/L (13-39) 09/02/16 15:08 ALT 12 U/L (7-52) 09/02/16 15:08 Alkaline Phosphatase 41 U/L (34-104) 09/02/16 15:08 Ammonia 43 umol/L (16-53) 09/04/16 05:33 B-Natriuretic Peptide 169.0 pg/mL (5.0-100.0) H 09/02/16 15:08 Total Protein 6.1 gm/dL (6.0-8.3) 09/02/16 15:08 Albumin 3.9 gm/dL (3.7-5.3) 09/02/16 15:08 Globulin 2.2 gm/dL 09/02/16 15:08 Albumin/Globulin Ratio 1.8 (1.0-1.8) 09/02/16 15:08 TSH 0.51 uIU/ml (0.34-5.60) 09/02/16 15:08 - Physical Exam Vitals and I&O: Vital Signs Temp 99.5 F 09/05/16 16:00 Pulse 117 09/05/16 16:00 Resp 19 09/05/16 16:00 BP 119/65 09/05/16 12:00 Pulse Ox 95 09/05/16 16:00 Intake & Output 09/04/16 09/05/16 09/05/16 18:59 06:59 18:59 Intake Total 5804 808 1092 Output Total 0 Balance 6685 121 8660 Weight (lbs) 55.066 kg 55.111 kg Intake: Intake, IV Amount 1100 1035 D5-0.45NS 1,000 ml @ 60 1000 935 mls/hr IV .[id number] [facility] Rx #:[id number] Levofloxacin 500mg/100mL 100 100 500 mg In 100 ml @ 100 mls/hr IV Q24HR [facility] Rx#: [id number] Oral 200 350 Output: Stool 0 Other: # Voids 2 2 Active Medications: Current Medications Acetaminophen (Tylenol) 650 mg PO Q4HR PRN PRN Reason: Pain Or Fever above 101 Stop: 11/01/16 13:29 Last Admin: 09/05/16 16:10 Dose: 650 mg Acetaminophen/Hydrocodone Bitart ([place] 10 Mg/325 Mg) 1 tab PO Q6H PRN PRN Reason: Severe Pain Stop: 11/01/16 13:39 Last Admin: 09/03/16 16:28 Dose: 1 tab Al Hydrox/Mg Hydrox/Simethicone (Maalox) 30 ml PO Q6HR PRN PRN Reason: Dyspepsia Stop: 11/01/16 13:29 Albuterol Sulfate (Albuterol 2.5mg/3ml Neb Ud) 2.5 mg IH QID [facility] Stop: 11/01/16 13:29 Last Admin: 09/05/16 14:55 Dose: 2.5 mg Alendronate Sodium (Fosamax) 70 mg PO Mo@0630 [facility] Stop: 11/05/16 06:29 Amlodipine Besylate (Norvasc) 10 mg PO DAILY [facility] Stop: 11/02/16 08:59 Last Admin: 09/05/16 09:29 Dose: 10 mg Clonidine HCl (Catapres) 0.1 mg PO Q6HR PRN PRN Reason: SBP GREATER THAN 160 Stop: 11/01/16 13:29 Divalproex Sodium (Depakote Dr) 250 mg PO DAILY [facility] PRN Reason: Protocol Stop: 11/02/16 08:59 Last Admin: 09/05/16 09:22 Dose: 250 mg Docusate Sodium (Colace) 100 mg PO DAILY [facility] Stop: 11/02/16 08:59 Last Admin: 09/05/16 09:22 Dose: 100 mg Donepezil HCl (Aricept) 10 mg PO HS [facility] Stop: 11/01/16 20:59 Last Admin: 09/04/16 20:22 Dose: 10 mg Guaifenesin (Robitussin) 100 mg PO Q4H PRN PRN Reason: Cough or Congestion Stop: 11/01/16 13:29 Dextrose/Sodium Chloride (D5-0.45ns) 1,000 mls @ 60 mls/hr IV .[id number] [facility] Stop: 11/01/16 13:29 Last Admin: 09/05/16 13:53 Dose: 60 mls/hr Levofloxacin (Levaquin Pb) 500 mg in 100 mls @ 100 mls/hr IV Q24HR [facility] Stop: 11/01/16 13:29 Last Infusion: 09/05/16 16:13 Dose: Infused Ipratropium [place] (Atrovent Neb 0.5mg/2.5ml) 0.5 mg IH QID [facility] Stop: 11/01/16 13:29 Last Admin: 09/05/16 14:55 Dose: 0.5 mg Loperamide HCl (Imodium) 4 mg PO Q4H PRN PRN Reason: Diarrhea Stop: 11/01/16 13:29 Memantine (Namenda) 10 mg PO BID [facility] Stop: 11/01/16 16:59 Last Admin: 09/05/16 16:10 Dose: 10 mg Morphine Sulfate (Morphine) 2 mg IVP Q4H PRN PRN Reason: Pain (Severe) Stop: 11/01/16 14:51 Last Admin: 09/05/16 00:44 Dose: 2 mg Neomycin/Polymyxin/Bacitracin (Triple Antibiotic Pkt) 1 pkt TP BID [facility] Stop: 11/01/16 16:59 Last Admin: 09/05/16 16:10 Dose: 1 pkt Ondansetron HCl (Zofran) 4 mg IV Q8H PRN PRN Reason: Nausea / Vomiting Stop: 11/01/16 13:29 Quetiapine Fumarate (Seroquel) 25 mg PO HS [facility] PRN Reason: Protocol Stop: 11/01/16 20:59 Last Admin: 09/04/16 20:22 Dose: 25 mg General: weak, disheveled, appears older, NAD HEENT: NC/AT, PERRLA Neck: Supple, No JVD, No LAD Cardiovascular: RRR, Normal S1, Normal S2, with murmur Abdomen: soft, non-tender, globular, non-distended, positive bowel sound Extremities: excoriation, contracture Neurological: no change - Procedures Procedures: Procedures Procedure Code Date REPAIR FACE, PERCUTANEOUS APPROACH [id number] 09/02/16 RPR F/E/E/N/L/M 2.5 CM/< 19705 09/02/16 Internal Medicine Assmt/Plan - Assessment Assessment: 1. head laceration s/p fall 2. UTI 3. DEMENTIA 4. HTN 5. displaced fx of the left proximal humeral shaft - Plan Plan: ortho consult AM LABS IVABX LEVAQUIN 500MG IV WILL MONITOR PATIENT CLOSELY - Plan Plan: see plan
[2016-09-06] MEDS: Hydrocodone/APAP 10 mg/325 mg Tab PO PRN (03:02)
[2016-09-06] MEDS: Albuterol Nebulizer 2.5mg/3mL IH SCH ×4 (07:19→18:53)
[2016-09-06] MEDS: Ipratropium Neb 0.5 mg/2.5 mL UD IH SCH ×4 (07:19→18:53)
[2016-09-06] MEDS: Triple Antibiotic 0.94 gm Pkt TP SCH ×2 (09:29→16:54)
[2016-09-06] MEDS: Multivitamin w/ Minerals Tab PO SCH (09:29)
[2016-09-06] MEDS: D5-0.45NS 1,000 ML IV SCH (11:43)
--- NOTE | 2016-09-06 12:20 | Internal Medicine Prog Note ---
Internal Medicine Subjective - Subjective Service Date: 09/06/16 Patient is:: awake, verbal, interactive, arousable, in bed, agitated, confused Patient Complaints of:: unable to sleep Per staff patient has:: no adverse event, agitated, noncompliant, confused, tolerating meds Internal Medicine Objective - Results Result Diagrams: 09/04/16 05:33 09/04/16 05:33 Recent Labs: Laboratory Last Values WBC 9.2 Th/cmm (4.8-10.8) 09/04/16 05:33 RBC 3.74 Mil/cmm (3.80-5.20) L 09/04/16 05:33 Hgb 11.6 gm/dL (11.7-16.1) L 09/04/16 05:33 Hct 33.8 % (35.0-45.0) L 09/04/16 05:33 MCV 90.5 fl (81-100) 09/04/16 05:33 MCH 30.9 pg (27.0-31.0) 09/04/16 05:33 MCHC Differential 34.1 pg (28.0-36.0) 09/04/16 05:33 RDW 15.3 % (11.5-20.0) 09/04/16 05:33 Plt Count 214 Th/cmm (150-400) 09/04/16 05:33 MPV 7.8 fl 09/04/16 05:33 Neutrophils % 67.7 % (40.0-80.0) 09/04/16 05:33 Band Neutrophils % 2 % (0-10) 09/02/16 15:08 Lymphocytes % 18.3 % (20.0-50.0) L 09/04/16 05:33 Monocytes % 11.9 % (2.0-10.0) H 09/04/16 05:33 Eosinophils % 1.8 % (0.0-5.0) 09/04/16 05:33 Basophils % 0.3 % (0.0-2.0) 09/04/16 05:33 Neutrophils (Manual) 86 % (40-80) H 09/02/16 15:08 Lymphocytes 10 % (20-50) L 09/02/16 15:08 Monocytes 2 % (2-10) 09/02/16 15:08 Platelet Estimate ADEQUATE (NORMAL) 09/02/16 15:08 PT 10.0 SECONDS (9.5-11.5) 09/02/16 15:08 INR 0.96 (0.5-1.4) 09/02/16 15:08 PTT (Actin FS) 22.7 SECONDS (26.0-38.0) L 09/02/16 15:08 Sodium 136 mEq/L (136-145) 09/04/16 05:33 Potassium 3.5 mEq/L (3.5-5.1) 09/04/16 05:33 Chloride 106 mEq/L (98-107) 09/04/16 05:33 Carbon Dioxide 27.7 mEq/L (21.0-31.0) 09/04/16 05:33 Anion Gap 5.8 (7.0-16.0) L 09/04/16 05:33 BUN 13 mg/dL (7-25) 09/04/16 05:33 Creatinine 0.6 mg/dL (0.6-1.2) 09/04/16 05:33 Est GFR ( Amer) TNP 09/04/16 05:33 Est GFR (Non-Af Amer) TNP 09/04/16 05:33 BUN/Creatinine Ratio 21.7 09/04/16 05:33 Glucose 101 mg/dL (70-105) 09/04/16 05:33 Calcium 8.3 mg/dL (8.6-10.3) L 09/04/16 05:33 Magnesium 2.1 mg/dL (1.9-2.7) 09/02/16 15:08 Total Bilirubin 0.3 mg/dL (0.3-1.0) 09/02/16 15:08 AST 15 U/L (13-39) 09/02/16 15:08 ALT 12 U/L (7-52) 09/02/16 15:08 Alkaline Phosphatase 41 U/L (34-104) 09/02/16 15:08 Ammonia 43 umol/L (16-53) 09/04/16 05:33 B-Natriuretic Peptide 169.0 pg/mL (5.0-100.0) H 09/02/16 15:08 Total Protein 6.1 gm/dL (6.0-8.3) 09/02/16 15:08 Albumin 3.9 gm/dL (3.7-5.3) 09/02/16 15:08 Globulin 2.2 gm/dL 09/02/16 15:08 Albumin/Globulin Ratio 1.8 (1.0-1.8) 09/02/16 15:08 TSH 0.51 uIU/ml (0.34-5.60) 09/02/16 15:08 - Physical Exam Vitals and I&O: Vital Signs Temp 98.4 F 09/06/16 08:00 Pulse 97 09/06/16 11:00 Resp 14 09/06/16 11:00 BP 149/72 09/06/16 09:29 Pulse Ox 93 09/06/16 11:00 Intake & Output 09/05/16 09/06/16 09/06/16 18:59 06:59 18:59 Intake Total 1255 900 Balance 1255 900 Weight (lbs) 113 lb Intake: Intake, IV Amount 1255 780 D5-0.45NS 1,000 ml @ 60 1155 780 mls/hr IV .[id number] [facility] Rx #:[id number] Levofloxacin 500mg/100mL 100 500 mg In 100 ml @ 100 mls/hr IV Q24HR [facility] Rx#: [id number] Oral 120 Other: # Voids 4 # Bowel Movements 0 Active Medications: Current Medications Acetaminophen (Tylenol) 650 mg PO Q4HR PRN PRN Reason: Pain Or Fever above 101 Stop: 11/01/16 13:29 Last Admin: 09/06/16 09:29 Dose: 650 mg Acetaminophen/Hydrocodone Bitart ([place] 10 Mg/325 Mg) 1 tab PO Q6H PRN PRN Reason: Severe Pain Stop: 11/01/16 13:39 Last Admin: 09/06/16 03:02 Dose: 1 tab Al Hydrox/Mg Hydrox/Simethicone (Maalox) 30 ml PO Q6HR PRN PRN Reason: Dyspepsia Stop: 11/01/16 13:29 Albuterol Sulfate (Albuterol 2.5mg/3ml Neb Ud) 2.5 mg IH QID [facility] Stop: 11/01/16 13:29 Last Admin: 09/06/16 10:58 Dose: 2.5 mg Alendronate Sodium (Fosamax) 70 mg PO Mo@0630 [facility] Stop: 11/05/16 06:29 Last Admin: 09/06/16 07:29 Dose: 70 mg Amlodipine Besylate (Norvasc) 10 mg PO DAILY [facility] Stop: 11/02/16 08:59 Last Admin: 09/06/16 09:29 Dose: 10 mg Clonidine HCl (Catapres) 0.1 mg PO Q6HR PRN PRN Reason: SBP GREATER THAN 160 Stop: 11/01/16 13:29 Divalproex Sodium (Depakote Dr) 250 mg PO DAILY [facility] PRN Reason: Protocol Stop: 11/02/16 08:59 Last Admin: 09/06/16 09:28 Dose: 250 mg Docusate Sodium (Colace) 100 mg PO DAILY [facility] Stop: 11/02/16 08:59 Last Admin: 09/06/16 09:29 Dose: 100 mg Donepezil HCl (Aricept) 10 mg PO HS [facility] Stop: 11/01/16 20:59 Last Admin: 09/05/16 20:49 Dose: 10 mg Guaifenesin (Robitussin) 100 mg PO Q4H PRN PRN Reason: Cough or Congestion Stop: 11/01/16 13:29 Dextrose/Sodium Chloride (D5-0.45ns) 1,000 mls @ 60 mls/hr IV .[id number] [facility] Stop: 11/01/16 13:29 Last Admin: 09/06/16 11:43 Dose: 60 mls/hr Levofloxacin (Levaquin Pb) 500 mg in 100 mls @ 100 mls/hr IV Q24HR [facility] Stop: 11/01/16 13:29 Last Infusion: 09/05/16 16:13 Dose: Infused Ipratropium [place] (Atrovent Neb 0.5mg/2.5ml) 0.5 mg IH QID [facility] Stop: 11/01/16 13:29 Last Admin: 09/06/16 10:58 Dose: 0.5 mg Loperamide HCl (Imodium) 4 mg PO Q4H PRN PRN Reason: Diarrhea Stop: 11/01/16 13:29 Memantine (Namenda) 10 mg PO BID [facility] Stop: 11/01/16 16:59 Last Admin: 09/06/16 09:29 Dose: 10 mg Morphine Sulfate (Morphine) 2 mg IVP Q4H PRN PRN Reason: Pain (Severe) Stop: 11/01/16 14:51 Last Admin: 09/05/16 00:44 Dose: 2 mg Neomycin/Polymyxin/Bacitracin (Triple Antibiotic Pkt) 1 pkt TP BID [facility] Stop: 11/01/16 16:59 Last Admin: 09/06/16 09:29 Dose: 1 pkt Ondansetron HCl (Zofran) 4 mg IV Q8H PRN PRN Reason: Nausea / Vomiting Stop: 11/01/16 13:29 Quetiapine Fumarate (Seroquel) 25 mg PO HS [facility] PRN Reason: Protocol Stop: 11/01/16 20:59 Last Admin: 09/05/16 20:49 Dose: 25 mg General: weak, demented, disheveled, appears older, NAD HEENT: NC/AT, PERRLA Neck: Supple, No JVD, No LAD Lungs: CTAB Cardiovascular: RRR, Normal S1, Normal S2, with murmur Abdomen: soft, non-tender, globular, non-distended, positive bowel sound Extremities: excoriation, contracture Neurological: no change - Procedures Procedures: Procedures Procedure Code Date REPAIR FACE, PERCUTANEOUS APPROACH [id number] 09/02/16 RPR F/E/E/N/L/M 2.5 CM/< 46722 09/02/16 Internal Medicine Assmt/Plan - Assessment Assessment: 1. head laceration s/p fall 2. UTI 3. DEMENTIA 4. HTN 5. displaced fx of the left proximal humeral shaft - Plan Plan: PATIENT TO HAVE A REPEAT XR OF THE LEFT SHOULDER ONCE CLEARED BY ORTHO MAY DC TODAY
--- NOTE | 2016-09-06 13:11 | Diagnostic Imaging Report ---
Exam: 2 views HISTORY trauma Findings: 2 views of left shoulder joint reviewed the study compared to prior examination of 09/02/2016. The study demonstrates minimally displaced fracture of proximal left humeral shaft. There is no evidence of dislocation the head of left humerus is well within the glenoid fossa. Small avulsion fracture proximal to 3 cm is noted over the lateral aspect of left humeral head. IMPRESSION: 1. Essentially unchanged upper approximation of 09/02/2016, minimally displaced fracture proximal left humeral shaft.
--- NOTE | 2016-09-06 13:13 | Diagnostic Imaging Report ---
Exam: Left humerus, 2 views HISTORY: Trauma Findings: 2 views of left humerus reviewed. The study demonstrates minimally displaced fracture proximal left humeral shaft with minimal impaction. Displacement approximately 2 mm avulsion fracture lateral aspect of the left humerus appreciated. The distal left humerus is intact. IMPRESSION: fracture proximal left humerus.
[2016-09-06] MEDS: Levofloxacin 500mg/100mL 500 MG/100 ML BAG IV SCH (14:24)
[2016-09-07] MEDS: Albuterol Nebulizer 2.5mg/3mL IH SCH ×3 (08:08→11:32)
[2016-09-07] MEDS: Ipratropium Neb 0.5 mg/2.5 mL UD IH SCH ×3 (08:09→11:32)
[2016-09-07] MEDS: Triple Antibiotic 0.94 gm Pkt TP SCH (09:43)
[2016-09-07] MEDS: D5-0.45NS 1,000 ML IV SCH (09:45)
[2016-09-07] MEDS: Multivitamin w/ Minerals Tab PO SCH (09:46)
[2016-09-07] MEDS ORDERED: Morphine Sulfate 4 mg/mL 1mL Syr IVP PRN (12:17)
--- NOTE | 2016-09-07 12:26 | Internal Medicine Prog Note ---
Internal Medicine Subjective - Subjective Service Date: 09/07/16 Patient is:: awake, verbal, interactive, arousable, in bed, agitated, confused Patient Complaints of:: unable to sleep Per staff patient has:: no adverse event, agitated, noncompliant, confused, tolerating meds Internal Medicine Objective - Results Result Diagrams: 09/04/16 05:33 09/04/16 05:33 Recent Labs: Laboratory Last Values WBC 9.2 Th/cmm (4.8-10.8) 09/04/16 05:33 RBC 3.74 Mil/cmm (3.80-5.20) L 09/04/16 05:33 Hgb 11.6 gm/dL (11.7-16.1) L 09/04/16 05:33 Hct 33.8 % (35.0-45.0) L 09/04/16 05:33 MCV 90.5 fl (81-100) 09/04/16 05:33 MCH 30.9 pg (27.0-31.0) 09/04/16 05:33 MCHC Differential 34.1 pg (28.0-36.0) 09/04/16 05:33 RDW 15.3 % (11.5-20.0) 09/04/16 05:33 Plt Count 214 Th/cmm (150-400) 09/04/16 05:33 MPV 7.8 fl 09/04/16 05:33 Neutrophils % 67.7 % (40.0-80.0) 09/04/16 05:33 Band Neutrophils % 2 % (0-10) 09/02/16 15:08 Lymphocytes % 18.3 % (20.0-50.0) L 09/04/16 05:33 Monocytes % 11.9 % (2.0-10.0) H 09/04/16 05:33 Eosinophils % 1.8 % (0.0-5.0) 09/04/16 05:33 Basophils % 0.3 % (0.0-2.0) 09/04/16 05:33 Neutrophils (Manual) 86 % (40-80) H 09/02/16 15:08 Lymphocytes 10 % (20-50) L 09/02/16 15:08 Monocytes 2 % (2-10) 09/02/16 15:08 Platelet Estimate ADEQUATE (NORMAL) 09/02/16 15:08 PT 10.0 SECONDS (9.5-11.5) 09/02/16 15:08 INR 0.96 (0.5-1.4) 09/02/16 15:08 PTT (Actin FS) 22.7 SECONDS (26.0-38.0) L 09/02/16 15:08 Sodium 136 mEq/L (136-145) 09/04/16 05:33 Potassium 3.5 mEq/L (3.5-5.1) 09/04/16 05:33 Chloride 106 mEq/L (98-107) 09/04/16 05:33 Carbon Dioxide 27.7 mEq/L (21.0-31.0) 09/04/16 05:33 Anion Gap 5.8 (7.0-16.0) L 09/04/16 05:33 BUN 13 mg/dL (7-25) 09/04/16 05:33 Creatinine 0.6 mg/dL (0.6-1.2) 09/04/16 05:33 Est GFR ( Amer) TNP 09/04/16 05:33 Est GFR (Non-Af Amer) TNP 09/04/16 05:33 BUN/Creatinine Ratio 21.7 09/04/16 05:33 Glucose 101 mg/dL (70-105) 09/04/16 05:33 Calcium 8.3 mg/dL (8.6-10.3) L 09/04/16 05:33 Magnesium 2.1 mg/dL (1.9-2.7) 09/02/16 15:08 Total Bilirubin 0.3 mg/dL (0.3-1.0) 09/02/16 15:08 AST 15 U/L (13-39) 09/02/16 15:08 ALT 12 U/L (7-52) 09/02/16 15:08 Alkaline Phosphatase 41 U/L (34-104) 09/02/16 15:08 Ammonia 43 umol/L (16-53) 09/04/16 05:33 B-Natriuretic Peptide 169.0 pg/mL (5.0-100.0) H 09/02/16 15:08 Total Protein 6.1 gm/dL (6.0-8.3) 09/02/16 15:08 Albumin 3.9 gm/dL (3.7-5.3) 09/02/16 15:08 Globulin 2.2 gm/dL 09/02/16 15:08 Albumin/Globulin Ratio 1.8 (1.0-1.8) 09/02/16 15:08 TSH 0.51 uIU/ml (0.34-5.60) 09/02/16 15:08 - Physical Exam Vitals and I&O: Vital Signs Temp 98.0 F 09/07/16 11:56 Pulse 81 09/07/16 11:56 Resp 18 09/07/16 11:56 BP 129/57 09/07/16 11:56 Pulse Ox 95 09/07/16 11:56 Intake & Output 09/06/16 09/07/16 09/07/16 18:59 06:59 18:59 Intake Total 100 1000 Balance 100 1000 Weight (lbs) 112 lb 12.8 oz Intake: Intake, IV Amount 100 1000 D5-0.45NS 1,000 ml @ 60 1000 mls/hr IV .[id number] [facility] Rx #:[id number] Levofloxacin 500mg/100mL 100 500 mg In 100 ml @ 100 mls/hr IV Q24HR [facility] Rx#: [id number] Active Medications: Current Medications Acetaminophen (Tylenol) 650 mg PO Q4HR PRN PRN Reason: Pain Or Fever above 101 Stop: 11/01/16 13:29 Last Admin: 09/06/16 09:29 Dose: 650 mg Acetaminophen/Hydrocodone Bitart ([place] 10 Mg/325 Mg) 1 tab PO Q6H PRN PRN Reason: Severe Pain Stop: 11/01/16 13:39 Last Admin: 09/06/16 03:02 Dose: 1 tab Al Hydrox/Mg Hydrox/Simethicone (Maalox) 30 ml PO Q6HR PRN PRN Reason: Dyspepsia Stop: 11/01/16 13:29 Albuterol Sulfate (Albuterol 2.5mg/3ml Neb Ud) 2.5 mg HHN QIDRT [facility] Stop: 11/06/16 14:59 Alendronate Sodium (Fosamax) 70 mg PO Mo@0630 [facility] Stop: 11/05/16 06:29 Last Admin: 09/06/16 07:29 Dose: 70 mg Amlodipine Besylate (Norvasc) 10 mg PO DAILY [facility] Stop: 11/02/16 08:59 Last Admin: 09/07/16 09:46 Dose: 10 mg Clonidine HCl (Catapres) 0.1 mg PO Q6HR PRN PRN Reason: SBP GREATER THAN 160 Stop: 11/01/16 13:29 Divalproex Sodium (Depakote Dr) 250 mg PO DAILY [facility] Stop: 11/07/16 08:59 Docusate Sodium (Colace) 100 mg PO DAILY [facility] Stop: 11/02/16 08:59 Last Admin: 09/07/16 09:46 Dose: 100 mg Donepezil HCl (Aricept) 10 mg PO HS [facility] Stop: 11/01/16 20:59 Last Admin: 09/06/16 21:23 Dose: 10 mg Guaifenesin (Robitussin) 100 mg PO Q4H PRN PRN Reason: Cough or Congestion Stop: 11/01/16 13:29 Dextrose/Sodium Chloride (D5-0.45ns) 1,000 mls @ 60 mls/hr IV .[id number] [facility] Stop: 11/01/16 13:29 Last Admin: 09/07/16 09:45 Dose: 60 mls/hr Levofloxacin (Levaquin Pb) 500 mg in 100 mls @ 100 mls/hr IV Q24HR [facility] Stop: 11/01/16 13:29 Last Infusion: 09/06/16 15:25 Dose: Infused Ipratropium [place] (Atrovent Neb 0.5mg/2.5ml) 0.5 mg HHN QIDRT [facility] Stop: 11/06/16 14:59 Loperamide HCl (Imodium) 4 mg PO Q4H PRN PRN Reason: Diarrhea Stop: 11/01/16 13:29 Memantine (Namenda) 10 mg PO BID [facility] Stop: 11/06/16 16:59 Morphine Sulfate (Morphine) 2 mg IVP Q4H PRN PRN Reason: Pain (Severe) Stop: 11/06/16 12:16 Neomycin/Polymyxin/Bacitracin (Triple Antibiotic Pkt) 1 pkt TP BID [facility] Stop: 11/01/16 16:59 Last Admin: 09/07/16 09:43 Dose: 1 pkt Ondansetron HCl (Zofran) 4 mg IV Q8H PRN PRN Reason: Nausea / Vomiting Stop: 11/01/16 13:29 Quetiapine Fumarate (Seroquel) 25 mg PO HS [facility] Stop: 11/06/16 20:59 General: weak, demented, disheveled, appears older, NAD HEENT: NC/AT, PERRLA Neck: Supple, No JVD, No LAD Lungs: CTAB Cardiovascular: RRR, Normal S1, Normal S2, with murmur Abdomen: soft, non-tender, globular, non-distended, positive bowel sound Extremities: excoriation, contracture Neurological: no change - Procedures Procedures: Procedures Procedure Code Date REPAIR FACE, PERCUTANEOUS APPROACH [id number] 09/02/16 RPR F/E/E/N/L/M 2.5 CM/< 67260 09/02/16 Internal Medicine Assmt/Plan - Assessment Assessment: 1. head laceration s/p fall 2. UTI 3. DEMENTIA 4. HTN 5. displaced fx of the left proximal humeral shaft - Plan Plan: ONCE CLEARED BY ORTHO MAY DC TODAY CONTINUE CURRENT PLAN OF CARE
--- NOTE | 2016-09-07 13:18 | Discharge Summary ---
General Discharge Summary - Discharge Summary Date of Admission: 09/02/16 Admitting Diagnosis: head laceration s/p fall Discharge Date: 09/07/16 Discharge Diagnosis: displaced fx of the left proximal humeral shaft, HEAD LACERATION S/P FALL Laboratory Findings: Laboratory Tests 09/02/16 09/02/16 09/02/16 15:08 15:08 15:08 WBC 14.6 H D RBC 4.09 Hgb 12.5 Hct 36.8 MCV 89.9 MCH 30.5 MCHC Differential 33.9 RDW 15.2 Plt Count 252 MPV 7.2 Neutrophils % Band Neutrophils % 2 Lymphocytes % Monocytes % Eosinophils % Basophils % Neutrophils (Manual) 86 H Lymphocytes 10 L Monocytes 2 Platelet Estimate ADEQUATE PT 10.0 INR 0.96 PTT (Actin FS) 22.7 L Sodium 135 L Potassium 3.8 Chloride 108 H Carbon Dioxide 23.9 Anion Gap 6.9 L BUN 22 Creatinine 0.6 Est GFR ( Amer) TNP Est GFR (Non-Af Amer) TNP BUN/Creatinine Ratio 36.7 Glucose 144 H Calcium 8.7 Magnesium 2.1 Total Bilirubin 0.3 AST 15 ALT 12 Alkaline Phosphatase 41 Ammonia B-Natriuretic Peptide Total Protein 6.1 Albumin 3.9 Globulin 2.2 Albumin/Globulin Ratio 1.8 TSH 09/02/16 09/02/16 09/03/16 15:08 15:08 05:24 WBC 9.1 D RBC 3.69 L Hgb 11.4 L Hct 33.6 L MCV 91.1 MCH 30.7 MCHC Differential 33.8 RDW 15.0 Plt Count 214 MPV 7.3 Neutrophils % 67.6 Band Neutrophils % Lymphocytes % 18.5 L Monocytes % 13.0 H Eosinophils % 0.6 Basophils % 0.3 Neutrophils (Manual) Lymphocytes Monocytes Platelet Estimate PT INR PTT (Actin FS) Sodium Potassium Chloride Carbon Dioxide Anion Gap BUN Creatinine Est GFR ( Amer) Est GFR (Non-Af Amer) BUN/Creatinine Ratio Glucose Calcium Magnesium Total Bilirubin AST ALT Alkaline Phosphatase Ammonia 49 B-Natriuretic Peptide 169.0 H Total Protein Albumin Globulin Albumin/Globulin Ratio TSH 0.51 09/03/16 09/04/16 09/04/16 05:24 05:33 05:33 WBC 9.2 RBC 3.74 L Hgb 11.6 L Hct 33.8 L MCV 90.5 MCH 30.9 MCHC Differential 34.1 RDW 15.3 Plt Count 214 MPV 7.8 Neutrophils % 67.7 Band Neutrophils % Lymphocytes % 18.3 L Monocytes % 11.9 H Eosinophils % 1.8 Basophils % 0.3 Neutrophils (Manual) Lymphocytes Monocytes Platelet Estimate PT INR PTT (Actin FS) Sodium 134 L 136 Potassium 3.7 3.5 Chloride 106 106 Carbon Dioxide 25.9 27.7 Anion Gap 5.8 L 5.8 L BUN 16 13 Creatinine 0.6 0.6 Est GFR ( Amer) TNP TNP Est GFR (Non-Af Amer) TNP TNP BUN/Creatinine Ratio 26.7 21.7 Glucose 122 H 101 Calcium 8.5 L 8.3 L Magnesium Total Bilirubin AST ALT Alkaline Phosphatase Ammonia B-Natriuretic Peptide Total Protein Albumin Globulin Albumin/Globulin Ratio TSH 09/04/16 05:33 WBC RBC Hgb Hct MCV MCH MCHC Differential RDW Plt Count MPV Neutrophils % Band Neutrophils % Lymphocytes % Monocytes % Eosinophils % Basophils % Neutrophils (Manual) Lymphocytes Monocytes Platelet Estimate PT INR PTT (Actin FS) Sodium Potassium Chloride Carbon Dioxide Anion Gap BUN Creatinine Est GFR ( Amer) Est GFR (Non-Af Amer) BUN/Creatinine Ratio Glucose Calcium Magnesium Total Bilirubin AST ALT Alkaline Phosphatase Ammonia 43 B-Natriuretic Peptide Total Protein Albumin Globulin Albumin/Globulin Ratio TSH Hospital Course: DURING THE HOSPITAL STAY PATIENT ADMITTED TO THE [facility], PATIENT HAD A XRAY DONE AND SHOWS DISPLACED FX OF THE LEFT PROXIMAL HUMERAL SHAFT. PATIENT WAS FOUND TO HAVE UTI AND WAS PLACED ON LEVAQUIN IVABX. PATIENT WAS SEEN BY ORTHOPEDIC AND DID NOT RECCOMEND SURGERY AND TO FOLLOW UP IN 6 WEEKS WITH XRAY OF THE LEFT SHOULDER. FOR THIS REASON PATIENT IS STABLE FOR DC. Condition at Discharge: Stable Disposition: Other Care w/in this hosp Home Medications: Home Medication Medication Instructions Recorded Type Alendronate Sodium [Fosamax*] 70 mg PO Mo@0630 #0 tab 03/18/16 Rx Colchicine [Colcrys] 0.6 mg PO DAILY #0 tab 03/18/16 Rx Donepezil Hcl [Aricept] 10 mg PO HS #0 tab 03/18/16 Rx Multivitamin w/ Minerals 1 tab PO DAILY #0 tab 03/18/16 Rx [Theragran M] amLODIPine Besylate [Norvasc*] 10 mg PO DAILY #0 tab 03/18/16 Rx Acetaminophen [Tylenol] 650 mg PO Q6H PRN 09/02/[address] [Depakote DR] 250 mg PO DAILY 09/02/16 History Loperamide [Imodium] 2 tab PO Q4H PRN 09/02/16 History Memantine [Namenda] 10 mg PO BID 09/02/16 History Quetiapine Fumarate [Seroquel] 25 mg PO HS 09/02/16 History Inpatient Medications: Current Medications Acetaminophen (Tylenol) 650 mg PO Q4HR PRN PRN Reason: Pain Or Fever above 101 Stop: 11/01/16 13:29 Last Admin: 09/06/16 09:29 Dose: 650 mg Acetaminophen/Hydrocodone Bitart ([place] 10 Mg/325 Mg) 1 tab PO Q6H PRN PRN Reason: Severe Pain Stop: 11/01/16 13:39 Last Admin: 09/06/16 03:02 Dose: 1 tab Al Hydrox/Mg Hydrox/Simethicone (Maalox) 30 ml PO Q6HR PRN PRN Reason: Dyspepsia Stop: 11/01/16 13:29 Albuterol Sulfate (Albuterol 2.5mg/3ml Neb Ud) 2.5 mg HHN QIDRT [facility] Stop: 11/06/16 14:59 Alendronate Sodium (Fosamax) 70 mg PO Mo@0630 [facility] Stop: 11/05/16 06:29 Last Admin: 09/06/16 07:29 Dose: 70 mg Amlodipine Besylate (Norvasc) 10 mg PO DAILY [facility] Stop: 11/02/16 08:59 Last Admin: 09/07/16 09:46 Dose: 10 mg Clonidine HCl (Catapres) 0.1 mg PO Q6HR PRN PRN Reason: SBP GREATER THAN 160 Stop: 11/01/16 13:29 Divalproex Sodium (Depakote Dr) 250 mg PO DAILY [facility] Stop: 11/07/16 08:59 Docusate Sodium (Colace) 100 mg PO DAILY [facility] Stop: 11/02/16 08:59 Last Admin: 09/07/16 09:46 Dose: 100 mg Donepezil HCl (Aricept) 10 mg PO HS [facility] Stop: 11/01/16 20:59 Last Admin: 09/06/16 21:23 Dose: 10 mg Guaifenesin (Robitussin) 100 mg PO Q4H PRN PRN Reason: Cough or Congestion Stop: 11/01/16 13:29 Dextrose/Sodium Chloride (D5-0.45ns) 1,000 mls @ 60 mls/hr IV .[id number] [facility] Stop: 11/01/16 13:29 Last Admin: 09/07/16 09:45 Dose: 60 mls/hr Levofloxacin (Levaquin Pb) 500 mg in 100 mls @ 100 mls/hr IV Q24HR [facility] Stop: 11/01/16 13:29 Last Infusion: 09/06/16 15:25 Dose: Infused Ipratropium [place] (Atrovent Neb 0.5mg/2.5ml) 0.5 mg HHN QIDRT [facility] Stop: 11/06/16 14:59 Loperamide HCl (Imodium) 4 mg PO Q4H PRN PRN Reason: Diarrhea Stop: 11/01/16 13:29 Memantine (Namenda) 10 mg PO BID [facility] Stop: 11/06/16 16:59 Morphine Sulfate (Morphine) 2 mg IVP Q4H PRN PRN Reason: Pain (Severe) Stop: 11/06/16 12:16 Neomycin/Polymyxin/Bacitracin (Triple Antibiotic Pkt) 1 pkt TP BID [facility] Stop: 11/01/16 16:59 Last Admin: 09/07/16 09:43 Dose: 1 pkt Ondansetron HCl (Zofran) 4 mg IV Q8H PRN PRN Reason: Nausea / Vomiting Stop: 11/01/16 13:29 Quetiapine Fumarate (Seroquel) 25 mg PO HS [facility] Stop: 11/06/16 20:59 Discharge Diet: Regular Consults and Follow-Up: Dante Hsu [Primary Care Provider] - Instructions: Shoulder Fracture
[2016-09-07] MEDS ORDERED: Ipratropium Neb 0.5 mg/2.5 mL UD HHN SCH (15:00)
[2016-09-07] MEDS ORDERED: Albuterol Nebulizer 2.5mg/3mL HHN SCH (15:00)
== END 2016-09-07 18:05 | disposition home or self-care (01) | DRG 605 ==
LOC: ER 10:50 → MSI 11:50
PROVIDERS: ADMIT Internal Medicine; ATTEND Internal Medicine
PROC: 0HQ1XZZ Repair Face Skin, External Approach (ICD-10-PCS; principal; 2016-09-02)
DX: S01.81XA Laceration without foreign body of other part of head, initial encounter (principal); N39.0 Urinary tract infection, site not specified; F03.90 Unspecified dementia, unspecified severity, without behavioral disturbance, psychotic disturbance, mood disturbance, and anxiety; F20.9 Schizophrenia, unspecified; S42.302A Unspecified fracture of shaft of humerus, left arm, initial encounter for closed fracture; I10 Essential (primary) hypertension; W18.30XA Fall on same level, unspecified, initial encounter; M19.90 Unspecified osteoarthritis, unspecified site; Y93.89 Activity, other specified; Y92.89 Other specified places as the place of occurrence of the external cause; Y99.8 Other external cause status; Z79.899 Other long term (current) drug therapy
CPT/HCPCS: 12011; 36415-UA; 70450-TC; 73030-TC-LT; 73060-TC-LT; 80048-TC; 80053-TC; 82140-TC; 83735-TC; 83880-TC; 84443-TC; 85007-TC; 85025-TC; 85027-TC; 85610-TC; 90779; 94640; 94760; 97530; A4217; J1956; J2270; J7613; X3904; X6444; Z7610